=== PATIENT | male | born 1960 | race Caucasian/White ===

== ENCOUNTER 2025-01-31 14:48 | Emergency (ER) | payer MEDICARE, SELFPAY ==
--- OUTSIDE RECORDS SUMMARY | 2025-01-31 14:58 | XMS_ITS | Encounter Summary ---
Author Organization [facility] Address [address] [place] [address] Phone Care Team Providers Care Naval Aircrewman Operator Name Role Phone Yordan Feliz MD Primary Care Provider [phone] Ronit Rockwell MD Unavailable [phone] Randy Cruz MD Unavailable [phone] Jimena Davis MD Unavailable Liborio Downs MD Unavailable Manav Donohue MD Unavailable [phone] Kee Henao MD Primary Care Provider [phone] Delvis Campos MD Unavailable Leann Heath RN Unavailable Unavaila Heladio Velázquez DPM Unavailable Unavailable Richard Whiting MD Unavailable Mary Ann Figueredo ACTING MANAGER, AUDIO VISUAL TECHNICIAN Unavailable + [phone] Jami Zimmer ACTING MANAGER, AUDIO VISUAL TECHNICIAN Unavailable [phone] Carol Kyle ACTING MANAGER, MARINE ENGINEER CPVEC Unavailable + [phone] Aundrea Marvin ACTING MANAGER, AUDIO VISUAL TECHNICIAN Unavailable Reason for Visit * Reason Comments Medication Refill Encounter Details Date Type Department Care Team (Late st Contact Info) Description 10/06[facility] [address] [place] [address] Manav Donohue MD [address] [place] [id number] Medication Refill Social History Tobacco Use Types Packs/Day Years Used Date Smoking Tobacco: Every Day Cigarettes 0.5 45 Started: 07/13/1980; Last attempted to quit: 10/08/2019 Smokeless Tobacco: Never Alcohol Use Standard Drinks/Week Comments Yes 4 (1 standard drink = 0.6 oz pure alcohol) a lot a 1/2 of liquor per day PHQ-2 Answer Date Recorded Total Score - Questions 1-9 9 04/21 Sexually Active Control Partners Comments Not Currently Female Sex and Gender Information Value Date Recorded Sex Assigned at Male 01/25/2025 12:59 AM CDT Legal Sex Male 8:54 PM CDT Gender Identity Male 01/25/2025 12:59 AM CDT Sexual Orientation Not on file Occupation Industry Job Start Date Job End Date disabled Not on file Not on file Not on file COVID-19 Exposure Response Date Recorded In the last month, have you been in contact with someone who was confirmed or suspected to have Coronavirus / COVID-19? No / Unsure 09/08/2021 2:16 PM PLATE EMBOSSER documented as of this encounter Plan of Treatment Upcoming Encounters Date Type Department Care Team (Late Contact Info) Description 04/14/2025 3:30 PM CDT Office Visit [facility] - Internal Medicine [place] [address] [place] [id number] Kee Henao MD [address] [place] [address] documented as of this encounter Goals Goal Patient Goal Type Associated Problems Recent Progress Patient-Stated? 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 Goal Reviewed with: patient Readiness to change: Ready to change Department associated with goal: [facility] Steps to achieve goal: Patient to be counseled on coping skills for anxiety Patient to be counseled on importance of medication compliance, seeing a psychiatrist Patient to be counseled on breathing and relaxation techniques Behavioral Health Behavioral Health On track(2020 4:24 PM CDT) No Juan Oakley LCSW Note: Goal: Patient will be able to report decreased alcohol/substance usage, along with increased insight into addiction Goal Reviewed with: patient Readiness to change: Ready to change Department associated with goal: [facility] Steps to achieve goal: Patient counseled on triggers for relapse Patient counseled on healthy coping skills to help maintain sobriety Patient encouraged to attend or , linkage to Navigation for community resources Care Coordination Care Coordination On track(2020 2:12 PM CDT) Carlie Grijalva LSW Note: Patient will demonstrate knowledge of community resources (learn about [facility] homemaker services and Medicare Counselors at [facility]) Anticipated Completion Date: In the next 3 months Patient's Preferred Goal: Standard Challenges/Barriers: None Readiness to Change: Thinking about making a change Notify Care Team if: You do not have one of your basic needs met (food, half-way, utility). Short Term Goals: Community Care Program for Seniors in [place] can provide homemakers (in home care), emergency response buttons, and automatic medication dispensers. To apply for any of these services call [facility] Case Coordination Unit at [phone]. For information on choosing a new Medicare plan or about your Medicare benefits you can call [facility] and ask to speak with Hiram Walters at [phone] ext [phone] or call the the [place] [employer] Insurance Program at . Depression Depression On track(2020 2:12 PM CDT) No Carlie Ge LSW Note: Goal: I will access and utilize behavioral health services (connect with [facility]) Anticipated Completion Date: In the next 3 months Patient's Preferred Goal: Highest Priority Challenges/Barriers: Patient prefers telehealth visit does not like to leave his home Readiness to change: Thinking about making a change Notify Care Team if: You are having increased thoughts of suicide or self-harm, You are unable to locate Behavioral Health services in your area Short Term Goals: Patient to contact local Mental Health Crisis Team if in need of crisis services [phone] or (ph#) WILLIAM will place a referral to [facility] for them to call you to schedule a telehealth appointment. If you do not receive a call from them in the next week feel free to call them at [phone] to schedule an appointment. documented as of this encounter Visit Diagnoses Not on filedocumented in this encounter Additional Health Concerns Assessment Noted Time PHQ-9 Depression Total Score: 9 05/05/20 21 2:00 PM CDT documented as of this encounter Care Teams Naval Aircrewman Operator Relationship Specialty Start Date End Date Yordan Feliz MD [address] [place] [address] PCP - General Internal Medicine 09/08/17 11/30/21 Kee Henao MD [address] [place] [address] PCP - General Internal Medicine 12/01/21 Ronit Rockwell MD [address] [place] [address] Consulting Physician Psychiatry 09/08/17 Randy Cruz MD [address] [place] [address] Consulting Physician Hematology 03/21/18 Jimena Davis MD [address] [place] [address] Consulting Physician Urology 03/25/19 Liborio Downs MD [address] [place] [id number] Consulting Physician Pulmonary Disease 03/25/19 Manav Donohue MD [address] [place] [id number] Consulting Physician Neurology 07/14/21 Delvis Campos MD [address] [facility] [facility] [facility] [place] [address] Director Of Institutional Giving Cardiovascular Disease - Cardiology 01/07/22 07/24/24 Leann Brennan RN [place] Registered Nurse Cardiology 06/06/22 07/24/24 Heladio Blanco, DPM Podiatry 11/24/21 Richard Whiting MD [address] [place] [address] Consulting Physician Colon and Rectal Surgery 02/03/23 Mary Ann Figueredo APRN, AUDIO VISUAL TECHNICIAN #2 [facility] [address] [place] [id number] Nurse Practitioner Cardiology 09/04/23 Jami Zimmer APRN, AUDIO VISUAL TECHNICIAN [address]2 [facility] [address] [place] [address] Nurse Practitioner Advanced Practice Nurse 03/14/22 Carol Kyle APRN, MARINE ENGINEER CPV[facility] [address] [place] [address] Nurse Practitioner Advanced Practice Nurse 06/01/22 Aundrea Marvin APRN, AUDIO VISUAL TECHNICIAN [address] [place] [address] Nurse Practitioner Advanced Practice Nurse 09/16/24 documented as of this encounter
--- OUTSIDE RECORDS SUMMARY | 2025-01-31 14:58 | XMS_ITS | Encounter Summary ---
Author Organization [facility] Address [address] [place] [address] Phone Care Team Providers Care Aviation Program Manager Name Role Phone Ronit Rockwell MD Unavailable [phone] Randy Cruz MD Unavailable [phone] Jimena Davis MD Unavailable [phone] Liborio Downs MD Unavailable Manav Donohue MD Unavailable [phone] Kee Henao MD Primary Care Provider [phone] Delvis Campos MD Unavailable Leann Heath RN Unavailable Unavaila Heladio Velázquez DPM Unavailable Unavailable Richard Whiting MD Unavailable Mary Ann Figueredo LOGISTICS CLERK, OUTSIDE PLANT SUPERVISOR Unavailable + [phone] Jami Zimmer LOGISTICS CLERK, OUTSIDE PLANT SUPERVISOR Unavailable [phone] Carol Kyle LOGISTICS CLERK, NURSE INFORMATICIST Unavailable + [phone] Aundrea Marvin LOGISTICS CLERK, OUTSIDE PLANT SUPERVISOR Unavailable Reason for Visit * Reason Comments Medication Refill Encounter Details Date Type Department Care Team (Late st Contact Info) Description 06/19/2023 [facility]ill [facility] - [place] [address] [facility] [place] [address] Kee Henao MD [address] [place] [address] Medication Refill Social History Tobacco Use Types Packs/Day Years Used Date Smoking Tobacco: Every Day Cigarettes 0.5 45 Started: 07/13/1980; Last attempted to quit: 10/08/2019 Smokeless Tobacco: Never Alcohol Use Standard Drinks/Week Comments Yes 4 (1 standard drink = 0.6 oz pur e alcohol) stopped 01/16/22 PHQ-2 Answer Date Recorded Total Score - [...] Exposure Response Date Recorded In the last 10 days, have yo u been in contact with someone who was confirmed or suspected to have Coronavirus/COVID-19? No / Unsure 06/02/2023 3:19 PM CDT documented as of this encounter Miscellaneous Notes * Telephone Encounter - Calli Chisholm RN - 06/19/2023 1:09 PM CDT Per nursing clinical judgement, provider to review and approve the medication(s) order(s) if appropriate. Requested Prescriptions Pending Prescriptions Disp Refills dilTIAZem (CARDIZEM CD) 120 MG CAPSULE SR 24 HR [Pharmacy Med Name: DILTIAZEM CD 120MG CAPSULES (24HR)] 90 Capsule 1 Sig: TAKE 1 CAPSULE BY MOUTH DAILY Calcium-Channel Blockers Protocol Passed - 06/19/2023 5:48 AM Passed - BP on record in the past year Clinician-entered: BP Readings from Last 3 Encounters: 02/24/23 138/82 02/11/23 126/67 02/10/23 124/82 Patient-entered: No data recorded Passed - Visit with relevant provider in past 12 months or upcoming 90 days Recent Visits Date Type Provider Dept 09/23/22 [facility] 06/29/22 Office Visit Kee Henao MD [facility] [place] Showing recent visits within past 365 days and meeting all other requirements Future Appointments No visits were found meeting these conditions. Showing future appointments within next 90 days and meeting all other requirements documented in this encounter Plan of Treatment Upcoming Encounters Date Type Department Care Team (Late st Contact Info) Description 04/14/2025 3:30 PM CDT Office Visit [facility] - Internal Medicine - [place] [address] [place] [address] Kee Henao MD [address] [place] [address] documented as of this encounter Goals Goal Patient Goal Type Associated Problems Recent Progress Patient-Stated? 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 Goal Reviewed with: patient Readiness to change: Ready to change Department associated with goal: [facility] Steps to achieve [...] Ready to change Department associated with goal: [facility] Steps to achieve goal: Patient counseled on triggers for relapse Patient counseled on healthy coping skills to help maintain sobriety Patient encouraged to attend AA or NA, linkage to Navigation for community resources Care Coordination Care Coordination On track(2020 2:12 PM CDT) Carlie Grijalva LSW Note: Patient will demonstrate knowledge of community resources (learn about [facility] homemaker services and Medicare Counselors at [facility]) Anticipated Completion Date: In the next 3 months Patient's Preferred Goal: Standard Challenges/Barriers: None Readiness to Change: Thinking about making a change Notify Care Team if: You do not have one of your basic needs met (food, fpc, utility). Short Term Goals: Community Care Program for Seniors in [place] can provide homemakers (in home care), emergency response buttons, and automatic medication dispensers. To apply for any of these services call [facility] Case Coordination Unit at [phone]. For information on choosing a new Medicare plan or about your Medicare benefits you can call [facility] and ask to speak with Hiram Walters at [phone] ext [phone] or call the the [place] [employer] [facility] Insurance Program at . Depression Depression On track(2020 2:12 PM CDT) Carlie Grijalva LSW Note: Goal: I will access and [...] Team if in need of crisis services [phone] or (ph#) WILLIAM GREY will place a referral to [facility] for them to call you to schedule a telehealth appointment. If you do not receive a call from them in the next week feel free to call them at [phone] to schedule an appointment. documented as of this encounter Visit Diagnoses Not on filedocumented in this encounter Additional Health Concerns Assessment Noted Time PHQ-9 Depression Total Score: 9 05/05/20 21 2:00 PM CDT documented as of this encounter Care Teams Aviation Program Manager Relationship Specialty Start Date End Date Kee Henao MD [address] [place] [address] PCP - General Internal Medicine 12/01/21 Ronit Rockwell MD Consulting Physician Psychiatry 09/08/17 Randy Cruz MD [address] [place], [place] [id number] Consulting Physician Hematology 03/21/18 Jimena Davis MD [address] [place] [address] Consulting Physician Urology 03/25/19 Liborio Downs MD [address] [place] [address] Consulting Physician Pulmonary Disease 03/25/19 Manav Donohue MD [address] [place] [address] Consulting Physician Neurology 07/14/21 Delvis Campos MD [address] [place] [address] Consumer Insights Intern Cardiovascular Disease - Cardiology 01/07/22 07/24/24 Leann Brennan, [place] Registered Nurse Cardiology 06/06/22 07/24/24 Heladio Blanco, DPM Podiatry 11/24/21 Richard Whiting MD #[address] [facility] [address] [place] [address] Consulting Physician Colon and Rectal Surgery 02/03/23 Mary Ann Figueredo, LOGISTICS CLERK, OUTSIDE PLANT SUPERVISOR #2 [facility] [address] [place] [address] Nurse Practitioner Cardiology 09/04/23 Jami Zimmer, LOGISTICS CLERK, OUTSIDE PLANT SUPERVISOR #[address] [facility] [address] [place] [address] Nurse Practitioner Advanced Practice Nurse 03/14/22 Carol Kyle, LOGISTICS CLERK, NURSE INFORMATICIST [address] [place] [address] Nurse Practitioner Advanced Practice Nurse 06/01/22 Aundrea Marvin APRN, OUTSIDE PLANT SUPERVISOR [address] [place] [address] Nurse Practitioner Advanced Practice Nurse 09/16/24 documented as of this encounter
--- OUTSIDE RECORDS SUMMARY | 2025-01-31 14:58 | XMS_ITS | Encounter Summary ---
Author Organization [facility] Address [address] [place] [address] Phone Care Team Providers Care Advertising Sales Manager Name Role Phone Yordan Feliz MD Primary Care Provider [phone] Ronit Rockwell MD Unavailable [phone] Randy Cruz MD Unavailable [phone] Jimena Davis MD Unavailable Liborio Downs MD Unavailable Manav Donohue MD Unavailable [phone] Kee Henao MD Primary Care Provider [phone] Delvis Campos MD Unavailable Leann Heath RN Unavailable Unavaila Heladio Velázquez DPM Unavailable Unavailable Richard Whiting MD Unavailable Mary Ann Figueredo HEALTH POLICY ANALYST, CHEESE PACKER Unavailable + [phone] Jami Zimmer HEALTH POLICY ANALYST, CHEESE PACKER Unavailable [phone] Carol Kyle HEALTH POLICY ANALYST, SENIOR ORACLE DATABASE DEVELOPER Unavailable + [phone] Aundrea Marvin HEALTH POLICY ANALYST, CHEESE PACKER Unavailable Reason for Visit * Reason Comments Medication Refill Encounter Details Date Type Department Care Team (Late st Contact Info) Description [facility]/21/[facility] [address] [place] [address] Manav Donohue MD [address] [place] [address] Medication Refill Social History Tobacco Use Types [...] file Not on file Not on file documented as of this encounter Plan of Treatment Upcoming Encounters Date Type Department Care Team (Late Contact Info) Description 04/14/2025 3:30 PM CDT Office Visit [facility] Internal Medicine [facility] [address] [place] [address] eKe Henao MD [address] [facility] [place] [address] documented as of this encounter Goals Goal Patient Goal Type Associated Problems Recent Progress Patient-Stated? 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 Goal Reviewed with: patient Readiness to change: Ready to change Department associated with goal: [facility] Steps to achieve goal: [...] Ready to change Department associated with goal: [facility] Steps to achieve goal: Patient counseled on triggers for relapse Patient counseled on healthy coping skills to help maintain sobriety Patient encouraged to attend AA or NA, linkage to Navigation for community resources Care Coordination Care Coordination On track(2020 2:12 PM CDT) Carlie Grijalva LSW Note: Patient will demonstrate knowledge of community resources (learn about [facility] homemaker services and Medicare Counselors at [facility]) Anticipated Completion Date: In the next 3 months Patient's Preferred Goal: Standard Challenges/Barriers: None Readiness to Change: Thinking about making a change Notify Care Team if: You do not have one of your basic needs met (food, snf, utility). Short Term Goals: Community Care Program for Seniors in [place] can provide homemakers (in home care), emergency response buttons, and automatic medication dispensers. To apply for any of these services call [place] Case Coordination Unit at [phone]. For information on choosing a new Medicare plan or about your Medicare benefits you can call [facility] [address] [facility] and ask to speak with Hiram Walters at [phone] ext [phone] or call the the [place] [employer] Insurance Program at . Depression Depression On track(2020 2:12 PM CDT) Carlie Grijalva LSW Note: Goal: I will access and utilize behavioral health services ([facility] with [facility]) Anticipated Completion Date: In the [...] Team if in need of crisis services [phone] or (ph#) WILLIAM GREY will place a referral to [facility] for them to call you to schedule a telehealth appointment. If you do not receive a call from them in the next week feel free to call them at [phone] to schedule an appointment. documented as of this encounter Visit Diagnoses Diagnosis RLS (restless legs syndrome) Restless legs syndrome (RLS) documented in this encounter Additional Health Concerns Assessment Noted Time PHQ-9 Depression Total Score: 9 05/05/20 21 2:00 PM CDT documented as of this encounter Care Teams Advertising Sales Manager Relationship Specialty Start Date End Date Yordan Feliz MD [address] [place] [address] PCP - General Internal Medicine 09/08/17 11/30/21 Kee Henao MD [address] [place] [address] PCP - General Internal Medicine 12/01/21 Ronit Rockwell MD [address] [place] [address] Consulting Physician Psychiatry 09/08/17 Randy Cruz MD [address] [place] [address] Consulting Physician Hematology 03/21/18 Jimena Davis MD [address] [place] [address] Consulting Physician Urology 03/25/19 Liborio Downs MD [address] [place] [address] Consulting Physician Pulmonary Disease 03/25/19 Manav Donohue MD [address] [place] [address] Consulting Physician Neurology 07/14/21 Delvis Campos MD [address] [place] [address] Bilingual Counter Sales Retail Cardiovascular Disease - Cardiology 01/07/22 07/24/24 Leann Brennan RN [place] Registered Nurse Cardiology 06/06/22 07/24/24 Heladio Blanco DPM Podiatry 11/24/21 Richard Whiting MD #[address] [address] Consulting Physician Colon and Rectal Surgery 02/03/23 Mary Ann Figueredo APRN, CHEESE PACKER #2 [facility] [address] [place] [address] Nurse Practitioner Cardiology 09/04/23 Jami Zimmer APRN, CHEESE PACKER #2 [facility] [address] [place] [address] Nurse Practitioner Advanced Practice Nurse 03/14/22 Carol Kyle APRN, SENIOR ORACLE DATABASE DEVELOPER #[address] [place] [address] Nurse Practitioner Advanced Practice Nurse 06/01/22 Aundrea Marvin APRN, CHEESE PACKER #[address] [place] [address] Nurse Practitioner Advanced Practice Nurse 09/16/24 documented as of this encounter
--- OUTSIDE RECORDS SUMMARY | 2025-01-31 14:58 | XMS_ITS | Encounter Summary ---
Author Organization [facility] Address [address] [place] [address] Phone Care Team Providers Care Line Inspector Name Role Phone Yordan Feliz MD Primary Care Provider [phone] Ronit Rockwell MD Unavailable [phone] Randy Cruz MD Unavailable [phone] Jimena Davis MD Unavailable [phone] Liborio Downs MD Unavailable Manav Donohue MD Unavailable [phone] Kee Henao MD Primary Care Provider [phone] Delvis Campos MD Unavailable Leann Heath RN Unavailable Unavaila Heladio Velázquez DPM Unavailable Unavailable Richard Whiting MD Unavailable Mary Ann Figueredo AMMUNITION STORAGE SUPERINTENDENT, MANAGER ACTUARIAL Unavailable + [phone] Jami Zimmer AMMUNITION STORAGE SUPERINTENDENT, MANAGER ACTUARIAL Unavailable [phone] Carol Kyle AMMUNITION STORAGE SUPERINTENDENT, AUTOMAT CAR ATTENDANT Unavailable + [phone] Aundrea Marvin AMMUNITION STORAGE SUPERINTENDENT, MANAGER ACTUARIAL Unavailable Reason for Visit * Reason Comments Medication Refill Encounter Details Date Type Department Care Team (Late st Contact Info) Description 08/30/2021 [facility] [address] [place] [address] Manav Donohue MD [address] [place] [address] Medication Refill Social History Tobacco Use Types [...] Description 04/14/2025 3:30 PM CDT Office Visit [facility] Internal Medicine [facility] [address] [place] [address] Kee Henao MD [address] [facility] [place] [address] documented as of this encounter Goals Goal Patient Goal Type Associated Problems Recent Progress Patient-Stated? 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 Goal Reviewed with: patient Readiness to change: Ready to change Department associated with goal: [facility] Steps to achieve goal: [...] to change Department associated with goal: [facility] Steps to achieve goal: Patient counseled on triggers for relapse Patient counseled on healthy coping skills to help maintain sobriety Patient encouraged to attend AA or NA, linkage to Navigation for community resources Care Coordination Care Coordination On track(2020 2:12 PM CDT) Carlie Grijalva LSW Note: Patient will demonstrate knowledge of community resources (learn about [facility] homemaker services and Medicare Counselors at [facility]) Anticipated Completion Date: In the next 3 months Patient's Preferred Goal: Standard Challenges/Barriers: None Readiness to Change: Thinking about making a change Notify Care Team if: You do not have one of your basic needs met (food, penitentiary, utility). Short Term Goals: Community Care Program for [place]iors in [place] can provide homemakers (in home care), emergency response buttons, and automatic medication dispensers. To apply for any of these services call [facility] at [phone]. For information on choosing a new Medicare plan or about your Medicare benefits you can call [facility] and ask to speak with Hiram Walters at [phone] or call the the [place] [employer] [facility] [place] Program at . Depression Depression [...] Team if in need of crisis services [phone] or (ph#) WILLIAM GREY will place a referral to [facility] for them to call you to schedule a telehealth appointment. If you do not receive a call from them in the next week feel free to call them at [phone] to schedule an appointment. documented as of this encounter Visit Diagnoses Not on filedocumented in this encounter Additional Health Concerns Infection Onset Date Last Indicated Resolved Time COVID - 19 09/08/2021 09/09/2021 09/29/2021 12:1 6 AM GENERATION ENGINEER Assessment Noted Time PHQ-9 Depression Total Score: 9 05/05/20 21 2:00 PM CDT documented as of this encounter Care Teams Line Inspector Relationship Specialty Start Date End Date Yordan Feliz MD [address] [place] [address] PCP - General Internal Medicine 09/08/17 11/30/21 Kee Henao MD [address] [place] [address] PCP - General Internal Medicine 12/01/21 Ronit Rockwell MD [address] [place] [address] Consulting Physician Psychiatry 09/08/17 Randy Cruz MD [address] [place] [address] Consulting Physician Hematology 03/21/18 Jimena Davis MD [address] [id number] Consulting Physician Urology 03/25/19 Liborio Downs MD [address] [place] [phone] Consulting Physician Pulmonary Disease 03/25/19 Manav Donohue MD [address] [place] [phone] Consulting Physician Neurology 07/14/21 Delvis Campos MD [address] [place] [address] Dress Draper Cardiovascular Disease - Cardiology 01/07/22 07/24/24 Leann Brennan RN [place] Registered Nurse Cardiology 06/06/22 07/24/24 Heladio Blanco, DPM Podiatry 11/24/21 Richard Whiting MD [address] [place] [address] Consulting Physician Colon and Rectal Surgery 02/03/23 Mary Ann Figueredo, AMMUNITION STORAGE SUPERINTENDENT, MANAGER ACTUARIAL [address] [facility] [address] [place] [address] Nurse Practitioner Cardiology 09/04/23 Jami Zimmer, AMMUNITION STORAGE SUPERINTENDENT, MANAGER ACTUARIAL [address]2 [facility] [address] [place] [address] Nurse Practitioner Advanced Practice Nurse 03/14/22 Carol Kyle, AMMUNITION STORAGE SUPERINTENDENT, AUTOMAT CAR ATTENDANT [address] [place] [address] Nurse Practitioner Advanced Practice Nurse 06/01/22 Aundrea Marvin APRN, MANAGER ACTUARIAL [address] [place] [address] Nurse Practitioner Advanced Practice Nurse 09/16/24 documented as of this encounter
--- OUTSIDE RECORDS SUMMARY | 2025-01-31 14:58 | XMS_ITS | Encounter Summary ---
Author Organization [facility] Address [address] [place] [address] Phone Care Team Providers Care Plugger Name Role Phone Ronit Rockwell MD Unavailable [phone] Randy Cruz MD Unavailable [phone] Jimena Davis MD Unavailable [phone] Liborio Downs MD Unavailable Manav Donohue MD Unavailable [phone] Kee Henao MD Primary Care Provider [phone] Delvis Campos MD Unavailable Leann Heath RN Unavailable Unavaila Heladio Velázquez DPM Unavailable Unavailable Richard Whiting MD Unavailable Mary Ann Figueredo UTILITY SUPERVISOR BOAT AND PLANT, PATCH WASHER Unavailable + [phone] Jami Zimmer UTILITY SUPERVISOR BOAT AND PLANT, PATCH WASHER Unavailable [phone] Carol Kyle UTILITY SUPERVISOR BOAT AND PLANT, SECURITY SUPPORT ANALYST Unavailable + [phone] Aundrea Marvin UTILITY SUPERVISOR BOAT AND PLANT, PATCH WASHER Unavailable Reason for Visit * Reason Comments Medication Refill Encounter Details Date Type Department Care Team (Late st Contact Info) Description 08/06/2023 Refill [facility] - Internal Medicine - [place] [address] [place] [address] Kathya Brink, ANNALISE [address] [place] [address] Medication Refill Social History Tobacco Use Types [...] on file documented as of this encounter Miscellaneous Notes * Telephone Encounter - Calli Chisholm RN - 08/07/2023 8:41 AM CST Medication failed the protocol, provider to review and approve the medication order if appropriate. Requested Prescriptions Pending Prescriptions Disp Refills gabapentin (NEURONTIN) 800 MG Tablet [Pharmacy Med Name: GABAPENTIN 800MG TABLETS] 90 Tablet 3 Sig: TAKE 1 TABLET BY MOUTH THREE TIMES DAILY Not Delegated - Anticonvulsants Excluding Benzodiazepines Protocol Failed - 08/06/2023 5:55 AM Failed - This refill cannot be delegated Passed - Visit with relevant provider in past 12 months or upcoming 90 days Recent Visits Date Type Provider Dept 09/23/22 Office Visit Kathya Brink, ANNALISE [facility] [place] Showing recent visits within past 365 days and meeting all other requirements Future Appointments No visits were found meeting these conditions. Showing future appointments within next 90 days and meeting all other requirements CHEMIST documented in this encounter Plan of Treatment Upcoming Encounters Date Type Department Care Team (Late st Contact Info) Description 04/14/2025 3:30 PM CDT Office Visit [facility] - Internal Medicine - [place] [address] [place] [address] Kee Henao MD [address] [place] [address] documented as of this encounter Goals Goal Patient Goal Type Associated Problems Recent Progress Patient-Stated? 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 Goal Reviewed with: patient Readiness to change: Ready to change Department associated with goal: [facility] Steps to achieve goal: [...] Ready to change Department associated with goal: [facility] Steps to achieve goal: Patient counseled on triggers for relapse Patient counseled on healthy coping skills to help maintain sobriety Patient encouraged to attend AA or NA, linkage to Navigation for community resources Care Coordination Care Coordination On track(2020 2:12 PM CDT) No Carlie Ge LSW Note: Patient will demonstrate knowledge of community resources (learn about [facility] homemaker services and Medicare Counselors at [facility]) Anticipated Completion Date: In the next 3 months Patient's Preferred Goal: Standard Challenges/Barriers: None Readiness to Change: Thinking about making a change Notify Care Team if: You do not have one of your basic needs met (food, custodial, utility). Short Term Goals: Community Care Program for Seniors in [place] can provide homemakers (in home care), emergency response buttons, and automatic medication dispensers. To apply for any of these services call [facility] at [phone]. For information on choosing a new Medicare plan or about your Medicare benefits you can call [employer] and ask to speak with Hiram Walters at [phone] or call the the [place] Health Insurance Program at . Depression Depression On track(2020 2:12 PM CDT) No Carlie Ge, MARILU Note: Goal: I will access and utilize [...] Team if in need of crisis services [phone] or (ph#) WILLIAM GREY will place a referral to [facility] for them to call you to schedule a telehealth appointment. If you do not receive a call from them in the next week feel free to call them at [phone] to schedule an appointment. documented as of this encounter Visit Diagnoses Diagnosis RLS (restless legs syndrome) Restless legs syndrome (RLS) documented in this encounter Additional Health Concerns Assessment Noted Time PHQ-9 Depression Total Score: 9 05/05/20 21 2:00 PM CDT documented as of this encounter Care Teams Plugger Relationship Specialty Start Date End Date Kee Henao MD [address] [place] [address] PCP - General Internal Medicine 12/01/21 Ronit Rockwell MD Consulting Physician Psychiatry 09/08/17 Randy Cruz MD [address] [id number] Consulting Physician Hematology 03/21/18 Jimena Davis MD [address] [id number] Consulting Physician Urology 03/25/19 Liborio Downs MD [address] [place] [address] Consulting Physician Pulmonary Disease 03/25/19 Manav Donohue MD [address] [place] [address] Consulting Physician Neurology 07/14/21 Delvis Campos MD [address] [facility] [place] [address] Detective Investigator Cardiovascular Disease - Cardiology 01/07/22 07/24/24 Leann Brennan, MELISSA [place] Registered Nurse Cardiology 06/06/22 07/24/24 Heladio Blanco, DPM Podiatry 11/24/21 Richard Whiting MD [address] [address] Consulting Physician Colon and Rectal Surgery 02/03/23 Mary Ann Figueredo APRN, PATCH WASHER [address] [address] Nurse Practitioner Cardiology 09/04/23 Jami Zimmer APRN, PATCH WASHER [address] [address] Nurse Practitioner Advanced Practice Nurse 03/14/22 Carol Kyle UTILITY SUPERVISOR BOAT AND PLANT, SECURITY SUPPORT ANALYST [address] [place] [address] Nurse Practitioner Advanced Practice Nurse 06/01/22 Aundrea Marvin APRN, PATCH WASHER [address] [place] [address] Nurse Practitioner Advanced Practice Nurse 09/16/24 documented as of this encounter
--- OUTSIDE RECORDS SUMMARY | 2025-01-31 14:58 | XMS_ITS | Clinical Summary ---
Author Organization [facility] Address [address] [place] [address] Phone Care Team Providers Care Metal Technician Name Role Phone RockwellRonit MD Unavailable Randy Cruz MD Unavailable [phone] Jimena Davis MD Unavailable [phone] Liborio Downs MD Unavailable Manav Donohue MD Unavailable [phone] Kee Henao MD Primary Care Provider [phone] Heladio Blanco DPM Unavailable Unavailable Richard Whiting MD Unavailable Mary Ann Figueredo BRIQUETTING MACHINE OPERATOR, FISHERIES DIRECTOR Unavailable + [phone] Jami Zimmer BRIQUETTING MACHINE OPERATOR, FISHERIES DIRECTOR Unavailable Carol Kyle BRIQUETTING MACHINE OPERATOR, ASSISTED LIVING EXECUTIVE DIRECTOR Unavailable + [phone] Aundrea Marvin BRIQUETTING MACHINE OPERATOR, FISHERIES DIRECTOR Unavailable Allergies Active Allergy Reactions Criticality Noted Date Comments Codeine Nausea 09/23/2022 Medications Multiple Vitamins-Minera ls (MULTIVITAL PO) Take 1 Tab by mouth daily. 8 Active MAGNESIUM PO Take 1 Tablet by mouth every other day. Active QUEtiapine (SEROquel) 100 MG TabletIndicatio ns:patient states he take 50 mg nigthly prn Take 1 Tablet by mouth nightly. Indications: patient states he take 50 mg nigthly prn 30 Tablet 1 1 Active clonazePAM (KlonoPIN) 0.5 MG Tablet Take 1 mg by mouth daily as needed for Anxiety. 2 Active Probiotic Product (PROBIOTIC-10 PO) Take by mouth daily. Active albuterol (ProAir HFA) 108 (90 Base) MCG/ACT Aerosol Solution take 2 Puffs by inhalation every 4 hours as needed for Wheezing. 1 g 5 3 Active buprenorphine-n aloxone (Suboxone) 1-0.25 FILM by Sublingual route 2 times daily. DOES NOT HAVE A LEGAL DOSE, TAKES MICRO DOSE BY CUTTING UP STRIP - .5mg BID Active metoprolol Succinate (TOPROL-XL) 50 MG TABLET SR 24 HR TAKE 1 TABLET BY MOUTH DAILY 180 Tablet 1 4 Active Vilazodone HCl 10 MG Tablet Take 1 Tablet by mouth every evening. 4 Active cloNIDine (CATAPRES) 0.1 MG Tablet Take 1 Tablet by mouth 2 times daily. 180 Tablet 1 4 Active gabapentin (NEURONTIN) 600 MG Tablet Take 1 Tablet by mouth 3 times daily. 90 Tablet 3 4 Active pantoprazole (PROTONIX) 20 MG Tablet Delayed Response Take 1 Tablet by mouth daily. 30 Tablet 3 4 Active rOPINIRole (REQUIP) 2 MG Tablet Take 1 tablet by mouth three times a day 270 Tablet 5 Active dilTIAZem (CARDIZEM CD) 240 MG CAPSULE SR 24 HR Take 1 Capsule by mouth daily. 90 Capsule 3 5 Active Xarelto 20 MG Tablet TAKE 1 TABLET BY MOUTH DAILY WITH FOOD 30 Tablet 5 5 Active ondansetron (ZOFRAN) 8 MG Tablet TAKE 1 TABLET BY MOUTH EVERY 8 HOURS NEEDED FOR NAUSEA 30 Tablet 5 Active cephALEXin (KEFLEX) 500 MG Capsule Take 1 Capsule by mouth 2 times daily for 7 days. 14 Capsule 5 02/02/20 25 Active tamsulosin (FLOMAX) 0.4 MG Capsule Take 1 Capsule by mouth daily. 30 Capsule 5 Active Active Problems Problem Noted Date Diagnosed Date Centrilobular emphysema 06/29/2022 Edema 02/02/2022 Paroxysmal atrial fibrillation 12/03/2021 Alcohol abuse 05/05/2021 Schizoaffective disorder, bipolar type 1 Insomnia secondary to chronic pain 01/29/2020 Cervicalgia 01/29/2020 [facility] current use of anticoagulant 0 Uncomplicated alcohol dependence 06/28/2019 Adrenal benign tumor, right 06/26/2019 Adrenal incidentaloma 05/23/2019 Class 1 obesity due to exces s calories with serious comorbidity and body mass index (BMI) of 31.0 to 31.9 in adult 05/23/2019 CED (obstructive sleep apnea) 09/10/2018 RLS (restless legs syndrome) 09/10/2018 Personal history of tobacco use 09/10/2018 Recurrent deep venous thrombosis 09/26/2017 Generalized anxiety disorder 02/29/2016 Shoulder pain, right 07/13/2015 GERD without esophagitis 07/13/2015 Attention deficit disorder 10/31/2012 Irritable colon 08/22/2012 Bipolar 1 disorder Chronic back pain Other hyperlipidemia Resolved Problems Problem Noted Date Diagnosed Date Resolved Date Atrial fibrillation with RVR 09/08/2021 09/10/2021 Seizure 05/18/2020 12/03/2021 Atrial fibrillation with RVR 06/26/2019 12/03/2021 Anxiety 04/11/2019 01/01/2020 Bilateral pulmonary embolism 04/10/2019 10/07/2019 Left leg DVT 04/10/2019 10/07/2019 Hypertriglyceridemia 04/10/2019 020 Joint pain 02/01/2018 03/21/2018 History of DVT of lower extremity 11/22/2017 03/21/2018 History of pulmonary embolism 09/26/2017 03/21/2018 Non-intractable vomiting without nausea 12/20/2016 03/21/2018 Venous thrombosis of deep ve ssels of the lower extremity 03/21/2018 Overview (07/14/2015): right leg DVT ,unprovoked, diagnosed in June 2014. CT chest showed probable small subsegmental PE in left lower lobe -- On anticoagulation since Jun 2014 -- Hypercoagulable work-up negative Encounters Date Type Department Care Team Description 01/29/2025 Telephone [facility] Call Center [address] [place] [address] Kee Henao MD Erroneous Encounter - Disregard 01/28/2025 Results Follow-Up [facility] [address] [place] [address] Liborio Downs MD XR CHEST 2 VIEWS 01/25/2025 12:43 AM CDT - 01/25/2025 4:39 AM CDT Emergency [facility] Emergency [address] [place] [address] Wellington Zelaya MD Acute cystitis without hematuria Discharge Disposition: Discharged to home or Selfcare 01/25/2025 Travel 01/20/2025 2:30 PM CDT - 01/20/2025 11:59 PM CDT Hospital Encounter [facility] Diagnostic Radiology [address] [place] [address] Liborio Downs MD Discharge Disposition: Discharged to home or Selfcare 01/20/2025 Travel 12/09/2024 2:30 PM CDT Office Visit [facility] [address] [place] [address] Liborio Downs MD Centrilobular emphysema (HCC) (Primary Dx); RLS (restless legs syndrome); Paroxysmal atrial fibrillation (HCC); Alcohol abuse Discharge Disposition: Discharged to home or Selfcare 12/09/2024 Travel 11/14/2024 Results Follow-Up [facility] - [place] [address] [place] [id number] Kee Henao MD HEMOGLOBIN A1C W/ ESTIMATED GLUCOSE, CMP (COMPREHENSIVE METABOLIC PANEL), LIPID PANEL, Additional followed-up results: 3 11/13/2024 Travel 11/12/2024 Telephone [facility] - Pulmonology & Sleep Medicine - [place] [address] [place] [address] Liborio Downs MD 11/05/2024 Refill [facility] - [place] [address] [place] [address] Kee Henao MD Medication Refill from Last 3 Months Immunizations Immunization Administration Dates Next Due Influenza Vaccine greater than 3 yrs 06/01/2015 Influenza Vaccine, Quadrivalent, PF 04/21,04/27/2022,06/22/2020,05/27,09/24/2018,09/08/2017,05/30/2014 Influenza, Trivalent, Adjuvanted, PF 08/19/2024 PUR FLU 3+ YRS PRES FREE QUAD IM 06/17/2016 PUR PCV-13 06/17/2016 Pneumococcal Vaccine Adult - 23 Valent ,09/08/2017 Pneumococcal conjugate PCV20 , polysaccharide [id number] conjugate, adjuvant, PF 05/20/2022 RSV, Recombinant, Protein Lobo bunit Rsvpref, Adjuvant Recon (Arexvy) 05/03/2023 Sars-cov-2 (Covid-19) Vaccin e, Unspecified 07/21/2023 Zoster Vaccine Recombinant 05/20/2022 Family History Medical History Relation Name Comments Diabetes Brother mariam Kidney Stones Brother mariam Cancer Father mesothelioma Other-comment Father MESOTHELIOMA No Known Problems Half-Brother estela Thyroid Disease Mother Cancer Paternal Uncle Prostate Cancer Paternal Uncle Rashes/Skin Problems Neg Hx Relation Name Status Comments Brother mariam Alive Father Half-Brother estela Alive Maternal Grandfather Maternal Grandmother Mother Unknown Paternal Grandfather Paternal Grandmother Paternal Uncle Social History Tobacco Use Types Packs/Day Years Used Date Smoking Tobacco: Every Day Cigarettes 0.5 44.6 Started: 07/13/1980 Smokeless Tobacco: Former Chew Tobacco Cessation:Ready to Q uit: No; Counseling Given: Yes Alcohol Use Standard Drinks/Week Comments Yes 35 (1 standard drink = 0.6 oz pu re alcohol) PHQ-2 Answer Date Recorded Total Score - [...] file Not on file Not on file Last Filed Vital Signs Vital Sign Reading Time Taken Comments Blood Pressure 129/80 01/25/2025 4:30 AM CDT Pulse 108 01/25/2025 4:30 AM CDT Temperature 36 C (96.8 F) 01/25/2025 12:39 AM CDT Respiratory Rate 17 01/25/2025 4:30 AM CDT Oxygen Saturation 90% 01/25/2025 4:30 AM CDT Inhaled Oxygen Concentration - - Weight 117.9 kg (260 lb) 01/25/2025 12:39 AM CDT Height 182.9 cm (6') 01/25/2025 12:39 AM CDT Body Mass Index 35.26 01/25/2025 12:39 AM CDT Plan of Treatment Upcoming Encounters Date Type Department Care Team (Late st Contact Info) Description 04/14/2025 3:30 PM CDT Office Visit [facility] - [facility] - [place] [address] [place] [id number] Kee Henao MD [address] [place] [address] Health Maintenance Due Date Last Done Comments TdaP Immunization 1958 Cologuard 2003 Immunochemical Fecal Occult Blood 2003 Zoster Immunization (2 of 2) 07/15/2022 05/20/2022 Lung Cancer Screening 03/18/2025 03/18/2024 , 09/06/2023, 06/02/2023, Additional history exists SARS-COV-2 Immunization ( season) 2025 11/06/2024, 07/21/2023, 05/20/2022, Additional history exists Colonoscopy 02/01/2027 02/01/2017, 12/2013, 11/10/2009 Colorectal Cancer Screening 02/01/2027 AAA Screening Ultrasound Completed 03/11/2022 Respiratory Syncytial Virus (RSV) Immunization (Adult) Completed 05/03/2023 Influenza Immunization Completed , 08/19/2024, 05/03/2023, Additional history exists Pneumococcal Immunization (50+ years) Completed 11/06/2024, 05/20/2022, 06/22/2020, Additional history exists Pneumococcal Immunization Combined Discontinued 11/06/2024, 05/20/2022, 06/22/2020, Additional history exists Hepatitis C Virus (HCV) Screening Completed 11/13/2024 PSA Discussion Completed 11/13/2024, 12/05/2018 Hepatitis B Immunization Aged Out No longer eligible based on patient's age to complete this topic Human Papillomavirus (HPV) Immunization Aged Out No longer eligible based on patient's age to complete this topic Meningococcal Immunization (ACWY) Aged Out No longer eligible based on patient's age to complete this topic Rotavirus Immunization Aged Out No lo nger eligible based on patient's age to complete this topic Goals Goal Patient Goal Type Associated Problems Recent Progress Patient-Stated? 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 Goal Reviewed with: patient Readiness to change: Ready to change Department associated with goal: [facility] Steps to achieve [...] Ready to change Department associated with goal: [facility] Steps to achieve goal: Patient counseled on triggers for relapse Patient counseled on healthy coping skills to help maintain sobriety Patient encouraged to attend AA or NA, linkage to Navigation for community resources Care Coordination Care Coordination On track(2020 2:12 PM CDT) Carlie Grijalva LSW Note: Patient will demonstrate knowledge of community resources (learn about [facility] homemaker services and Medicare Counselors at [facility]) Anticipated Completion Date: In the next 3 months Patient's Preferred Goal: Standard Challenges/Barriers: None Readiness to Change: Thinking about making a change Notify Care Team if: You do not have one of your basic needs met (food, assisted, utility). Short Term Goals: [facility] for Seniors in [place] can provide homemakers (in home care), emergency response buttons, and automatic medication dispensers. To apply for any of these services call [facility] at [phone]. For information on choosing a new Medicare plan or about your Medicare benefits you can call [facility] and ask to speak with Hiram Walters at [phone] ext [phone] or call the the [place] [employer] Health Insurance Program at . Depression Depression [...] Team if in need of crisis services [phone] or (ph#) WILLIAM GREY will place a referral to [facility] for them to call you to schedule a telehealth appointment. If you do not receive a call from them in the next week feel free to call them at [phone] to schedule an appointment. Procedures Procedure Name Priority Date/Time Associated Diagnosis Comments URINALYSIS REFLEX IF INDICATED BY ABNORMAL RESULTS STAT 01/25/2025 3:00 AM CDT CULTURE, URINE STAT 01/25/2025 3:00 AM CDT XR CHEST SINGLE VIEW PORTABLE STAT 01/25/2025 2:[address] ABDOMEN PELVIS W/O CONTRAST Stat with Interpretation 01/25/2025 2:08 AM CDT CBC WITH AUTO DIFFERENTIAL STAT 01/25/2025 1:54 AM CDT ETHYL ALCOHOL (ETHANOL) STAT 01/25/2025 1:54 AM CDT MAGNESIUM (MG) STAT 01/25/2025 1:54 AM CDT TROPONIN I, HIGH SENSITIVITY (HSTRP) STAT 01/25/2025 1:54 AM CDT CMP (COMPREHENSIVE METABOLIC PANEL) STAT 01/25/2025 1:54 AM CDT COMPLETE BLOOD COUNT (CBC) WITH DIFF STAT 01/25/2025 1:54 AM CDT EKG 12 LEAD STAT 01/25/2025 1:37 AM CDT EKG SCAN 01/25/2025 12:00 AM CDT XR CHEST 2 VIEWS Routine 01/20/2025 2:42 PM CDT Centrilobular emphysema (HCC) CBC WITH AUTO DIFFERENTIAL Routine 11/13/2024 2:49 PM CDT Chronic fatigue HEPATITIS C ANTIBODY Routine 11/13/2024 2:49 PM CDT Abnormal findings on diagnostic imaging of liver HEPATITIS B SURFACE ANTIGEN (HBSAG) Routine 11/13/2024 2:49 PM CDT Abnormal findings on diagnostic imaging of liver Encounter for screening for other viral diseases HEPATITIS B SURFACE ANTIBODY (HBSAB) Routine 11/13/2024 2:49 PM CDT Abnormal findings on diagnostic imaging of liver Encounter for screening for other viral diseases HEPATITIS A ANTIBODY IGG Routine 11/13/2024 2:49 PM CDT Abnormal findings on diagnostic imaging of liver FIBROTEST ACTITEST, SERUM, LEWIS FIBRO Routine 11/13/2024 2:49 PM CDT Fatty liver Abnormal findings on diagnostic imaging of liver PSA SCREEN Routine 11/13/2024 2:49 PM CDT Screening for prostate cancer COMPLETE BLOOD COUNT (CBC) WITH DIFF Routine 11/13/2024 2:49 PM CDT Chronic fatigue THYROID STIMULATING HORMONE (TSH) Routine 11/13/2024 2:49 PM CDT Chronic fatigue LIPID PANEL Routine 11/13/2024 2:49 PM CDT Other hyperlipidemia CMP (COMPREHENSIVE METABOLIC PANEL) Routine 11/13/2024 2:49 PM CDT Other hyperlipidemia HEMOGLOBIN A1C W/ ESTIMATED GLUCOSE Routine 11/13/2024 2:[address] CHEST SCREENING WO Routine 03/18/2024 3:05 PM CDT Multiple lung nodules on CT HM COLONOSCOPY Routine 04/25/2014 from Last 3 Months or Most Recently Relevant to Health Maintenance Results * (ABNORMAL) Urinalysis w/ Reflex (01/25/2025 3:00 AM CDT) SPECIFIC GRAVITY 1.025 1.003 - 1.030 01/25/2025 3:23 AM CDT [facility] URINE PH 6.0 5.0 - 9.0 01/25/2025 3:23 AM CDT [facility] WBC ESTERASE 100 /uL(A) Negative 01/25/2025 3:23 AM CDT [facility] NITRITE Negative Negative 01/25/2025 3:23 AM CDT [facility] PROTEIN, RANDOM URINE 30 mg/dL(A) Negative 01/25/2025 3:23 AM CDT [facility] URINE GLUCOSE, QUAL Negative Negative 01/25/2025 3:23 AM CDT [facility] URINE KETONES 150 mg/dL(A) Negative 3:23 AM CDT [facility] UROBILINOGEN 1 mg/dL(A) Normal mg/dL 01/25/2025 3:23 AM CDT [facility] URINE BLOOD 25 /uL(A) Negative deshawn/ul 01/25/2025 3:23 AM CDT [facility] URINALYSIS COLOR Yellow 01/25/2025 3:23 AM CDT [facility] URINALYSIS CLARITY Slightly Cloudy 01/25/2025 3:23 AM CDT [facility] WBC (Urine) 11-20(A) Negative, 0-5 /hpf 01/25/2025 3:23 AM CDT [facility] URINE RBC'S 0-2 Negative, 0-2 /hpf 01/25/2025 3:23 AM CDT [facility] EPITHELIAL CELLS Occasional /lpf 01/25/2025 3:23 AM CDT [facility] BACTERIA, URINE Few(A) Negative /hpf 01/25/2025 3:23 AM CDT [facility] URINE MUCOUS Many 01/25/2025 3:23 AM CDT [facility] Urine URINE SPECIMEN / Unknown Non-Phlebotomy Collection / Unknown 01/25/2025 3:00 AM CDT 01/25/2025 3:05 AM CDT us Wellington Zelaya MD URINE ORDERABLES Final Res ult [facility] [address] [place] [address] * Culture, Urine (01/25/2025 3:00 AM CDT) CULTURE RESULTS No growth final 01/26/2025 10:10 AM CDT [facility] Urine URINE SPECIMEN / Unknown Non-Phlebotomy Collection / Unknown 01/25/2025 3:00 AM CDT 01/25/2025 3:05 AM CDT us Wellington Zelaya MD MICROBIOLOGY - GENERAL ORD ERABLES Final Result [facility] [address] [place] [address], [place] * XR CHEST SINGLE VIEW PORTABLE (01/25/2025 2:08 AM CDT) Anatomical Region Laterality Modality Chest N/A Computed Radiogr aphy 01/25/2025 2:20 AM CDT Impressions 01/25/2025 2:22 AM CDT IMPRESSION: No acute abnormality identified. Narrative 01/25/2025 2:22 AM CDT EXAM DESCRIPTION: XR CHEST SINGLE VIEW PORTABLE REASON FOR STUDY: rapid atrial fib TECHNIQUE: Portable upright AP view of the chest. COMPARISON: 01/20/2025 FINDINGS: LUNGS AND PLEURA: No focal opacity, large effusion, or pneumothorax identified. HEART/MEDIASTINUM: Trachea midline. Cardiac silhouette normal in size. Mediastinal contours appear normal. BONES: Unremarkable. CHEST WALL: Unremarkable. UPPER ABDOMEN: Unremarkable. THIS IS AN ELECTRONICALLY VERIFIED FINAL REPORT 01/25/2025 2:20 AM - Electronically signed by Victoriano Rockwell M.D. AR: JEVON Report ID: [id number] Reading Location: [id number] Procedure Note Victoriano Rockwell MD - 01/25/2025 EXAM DESCRIPTION: XR CHEST SINGLE VIEW PORTABLE REASON FOR STUDY: rapid atrial fib TECHNIQUE: Portable upright AP view of the chest. COMPARISON: 01/20/2025 FINDINGS: LUNGS AND PLEURA: No focal opacity, large effusion, or pneumothorax identified. HEART/MEDIASTINUM: Trachea midline. Cardiac silhouette normal in size. Mediastinal contours appear normal. BONES: Unremarkable. CHEST WALL: Unremarkable. UPPER ABDOMEN: Unremarkable. THIS IS AN ELECTRONICALLY VERIFIED FINAL REPORT 01/25/2025 2:20 AM - Electronically signed by Victoriano Rockwell M.D. AR: JEVON Report ID: [id number] Reading Location: [place] [address] IMPRESSION: No acute abnormality identified. Wellington Zelaya MD IMG DIAGNOSTIC ORDERABLES Final Result * CT ABDOMEN PELVIS W/O CONTRAST (01/25/2025 2:08 AM CDT) Anatomical Region Laterality Modality Abdomen N/A Computed Tomogra phy 01/25/2025 2:25 AM CDT Impressions 01/25/2025 2:27 AM CDT IMPRESSION: Slight haziness around the bladder is nonspecific but could represent cystitis. No urolithiasis or urinary tract obstruction is seen. Large, nonenhancing defect across the mid aspect of the liver, previously characterized by MRI on 07/08/2024. Narrative 01/25/2025 2:27 AM CDT EXAM DESCRIPTION: CT ABDOMEN PELVIS W/O CONTRAST REASON FOR STUDY: Nausea, vomiting, decreased urination TECHNIQUE: CT scan of the abdomen and pelvis performed without intravenous and without oral contrast using helical scanning technique. Reconstructed coronal and sagittal MPR images reviewed. All images stored on PACS. Automated exposure control was used as a dose optimization technique for this examination. COMPARISON: 09/09/2021 FINDINGS: LOWER CHEST: Mild interstitial coarsening in the left lung base. Heart size normal. No effusion. LIVER/BILIARY: Large, nonenhancing defect across the mid aspect of the liver is new since 2021. This is characteristic of infarct and not clearly masslike. Hepatic steatosis. Biliary tree normal in caliber. GALLBLADDER: Absent. SPLEEN: Normal. PANCREAS: Advanced atrophy. ADRENAL GLANDS: Small right adenoma. KIDNEYS/URINARY TRACT: Slight haziness around the bladder. No clear wall thickening. Ureters and kidneys unremarkable. GI: Stomach and small bowel appear normal. Scattered noninflamed colonic diverticula. Normal appendix. OTHER ABDOMINAL/PELVIS: Major vascular structures are normal in caliber. No enlarged lymph node or free fluid. MSK: Moderate to advanced disc disease and facet arthropathy. Mild hip and SI joint arthrosis. BODY WALL: Unremarkable. THIS IS AN ELECTRONICALLY VERIFIED FINAL REPORT 01/25/2025 2:25 AM - Electronically signed by Victoriano Rockwell M.D. AR: JEVON Report ID: [id number] Reading Location: [id number] Procedure Note Victoriano Rockwell MD - 01/25/2025 EXAM DESCRIPTION: CT ABDOMEN PELVIS W/O CONTRAST REASON FOR STUDY: Nausea, vomiting, decreased urination TECHNIQUE: CT scan of the abdomen and pelvis performed without intravenous and without oral contrast using helical scanning technique. Reconstructed coronal and sagittal MPR images reviewed. All images stored on PACS. Automated exposure control was used as a dose optimization technique for this examination. COMPARISON: 09/09/2021 FINDINGS: LOWER CHEST: Mild interstitial coarsening in the left lung base. Heart size normal. No effusion. LIVER/BILIARY: Large, nonenhancing defect across the mid aspect of the liver is new since 2021. This is characteristic of infarct and not clearly masslike. Hepatic steatosis. Biliary tree normal in caliber. GALLBLADDER: Absent. SPLEEN: Normal. PANCREAS: Advanced atrophy. ADRENAL GLANDS: Small right adenoma. KIDNEYS/URINARY TRACT: Slight haziness around the bladder. No clear wall thickening. Ureters and kidneys unremarkable. GI: Stomach and small bowel appear normal. Scattered noninflamed colonic diverticula. Normal appendix. OTHER ABDOMINAL/PELVIS: Major vascular structures are normal in caliber. No enlarged lymph node or free fluid. MSK: Moderate to advanced disc disease and facet arthropathy. Mild hip and SI joint arthrosis. BODY WALL: Unremarkable. THIS IS AN ELECTRONICALLY VERIFIED FINAL REPORT 01/25/2025 2:25 AM - Electronically signed by Victoriano Rockwell M.D. AR: JEVON Report ID: [id number] Reading Location: [id number] IMPRESSION: Slight haziness around the bladder is nonspecific but could represent cystitis. No urolithiasis or urinary tract obstruction is seen. Large, nonenhancing defect across the mid aspect of the liver, previously characterized by MRI on 07/08/2024. Wellington Zelaya MD IMG CT ORDERABLES Final Re sult * TROPONIN I, HIGH SENSITIVITY (HSTRP) (01/25/2025 1:54 AM CDT) [facility] TROPONIN I, HIGH SENSITIVITY- [facility] 5 <=35 ng/L 01/25/2025 2:28 AM CDT [facility] Comment: High-sensitivity troponin I results are reported in ng/L making the result appear to be 1,000 times higher than the contemporary troponin I value which is reported in ng/ml. Results from [facility]. Blood Venipuncture / Unknown 01/25/2025 1:54 AM CDT 01/25/2025 2:03 AM CDT Wellington Zelaya MD CHEMISTRY ORDERABLES Final Result [facility] [address] [place] [address] * (ABNORMAL) CBC with Auto Differential (01/25/2025 1:54 AM CDT) Only the most recent of2 resultswithin the time period is included. [facility] WBC 13.08(H) 4.00 - 12.00 10(3)/mcL 01/25/2025 2:06 AM CDT [facility] RBC 4.45 4.40 - 5.80 10(6)/mcL 01/25/2025 2:06 AM CDT [facility] HEMOGLOBIN (HGB) 15.4 13.0 - 16.5 g/dL 01/25/2025 2:06 AM CDT [facility] HEMATOCRIT (HCT) 45.5 38.0 - 50.0 % 01/25/2025 2:06 AM CDT [facility] MCV 102.2(H) 82.0 - 96.0 fL 01/25/2025 2:06 AM CDT [facility] MCH 34.6(H) 26.0 - 32.0 pg 01/25/2025 2:06 AM CDT [facility] MCHC 33.8 31.0 - 36.0 g/dL 01/25/2025 2:06 AM CDT [facility] PLATELET COUNT 294 140 - 440 10(3)/mcL 01/25/2025 2:06 AM CDT [facility] RDW 12.1 11.8 - 15.5 % 01/25/2025 2:06 AM CDT [facility] MPV 9.5 8.0 - 12.6 fL 01/25/2025 2:06 AM CDT [facility] NEUTROPHILS 86.6(H) 40.0 - 68.0 % 01/25/2025 2:06 AM CDT [facility] LYMPHOCYTES 6.7(L) 19.0 - 49.0 % 01/25/2025 2:06 AM CDT [facility] MONOCYTES 6.0 3.0 - 13.0 % 01/25/2025 2:06 AM CDT [facility] EOSINOPHILS 0.2 0.0 - 8.0 % 01/25/2025 2:06 AM CDT [facility] BASOPHILS 0.5 0.0 - 1.0 % 01/25/2025 2:06 AM CDT [facility] ABSOLUTE NEUTROPHILS 11.33(H) 1.40 - 5.30 10(3)/mcL 01/25/2025 2:06 AM CDT [facility] ABSOLUTE LYMPHOCYTES 0.87(L) 0.90 - 3.30 10(3)/mcL 01/25/2025 2:06 AM CDT [facility] ABSOLUTE MONOCYTES 0.79 0.10 - 0.90 10(3)/mcL 01/25/2025 2:06 AM CDT [facility] ABSOLUTE EOSINOPHIL 0.02 0.00 - 0.50 10(3)/mcL 01/25/2025 2:06 AM CDT [facility] ABSOLUTE BASOPHILS 0.07 0.00 - 0.10 10(3)/mcL 01/25/2025 2:06 AM CDT [facility] NRBC PER 100 WBC 0 01/26/20 2:06 AM CDT [facility] Blood Venipuncture / Unknown 01/25/2025 1:54 AM CDT 01/25/2025 2:03 AM CDT Wellington Zelaya MD HEMATOLOGY ORDERABLES Emilee l Result Performing Organization Address City/[facility]/ZIP Co de Phone Number [facility] [address] [place] [address] * Magnesium (01/25/2025 1:54 AM CDT) MAGNESIUM 2.2 1.6 - 2.6 mg/dL 01/25/2025 2:26 AM CDT [facility] Blood Venipuncture / Unknown 01/25/2025 1:54 AM CDT 01/25/2025 2:03 AM CDT Wellington Zelaya MD CHEMISTRY ORDERABLES Final Result Performing Organization Address [facility] Co de Phone Number [facility] [address] [place] [address] * ETOH Level (01/25/2025 1:54 AM CDT) ETHANOL <10 <10 mg/dL 01/25/2025 2:2 6 AM CDT [facility] Blood Venipuncture / Unknown 01/25/2025 1:54 AM CDT 01/25/2025 2:03 AM CDT Wellington Zelaya MD CHEMISTRY ORDERABLES Final Result Performing Organization Address City/[facility]/ZIP Co de Phone Number [facility] [address] [place] [address] * (ABNORMAL) CMP (01/25/2025 1:54 AM CDT) Only the most recent of2 resultswithin the time period is included. SODIUM 140 136 - 145 mmol/L 01/25/2025 2:26 AM CDT [facility] POTASSIUM 3.9 3.5 - 5.1 mmol/L 01/25/2025 2:26 AM CDT [facility] CHLORIDE 102 98 - 107 mmol/L 01/25/2025 2:26 AM CDT [facility] CO2, VENOUS 24 22 - 30 mmol/L 01/25/2025 2:26 AM CDT [facility] ANION GAP 17.9 <18.0 mmol/L 01/25/2025 2:26 AM CDT [facility] GLUCOSE 105(H) 70 - 99 mg/dL 01/25/2025 2:26 AM CDT [facility] BUN 13 8 - 26 mg/dL 01/25/2025 2:26 AM CDT [facility] CREATININE, BLOOD 0.98 0.70 - 1.30 mg/dL 01/25/2025 2:26 AM CDT [facility] BUN/CREATININE RATIO 13 12 - 20 ratio 01/25/2025 2:26 AM CDT [facility] TOTAL PROTEIN 8.1(H) 6.0 - 8.0 g/dL 01/25/2025 2:26 AM CDT [facility] ALBUMIN 4.5 3.5 - 5.0 g/dL 01/25/2025 2:26 AM CDT [facility] A/G RATIO 1.3 1.0 - 2.2 01/25/2025 2:26 AM CDT [facility] CALCIUM 9.6 8.7 - 10.5 mg/dL 01/25/2025 2:26 AM CDT [facility] T BILI 0.9 0.2 - 1.2 mg/dL 01/25/2025 2:26 AM CDT [facility] SGOT (AST) 37 <43 U/L 01/25/2025 2:26 AM CDT [facility] SGPT (ALT) 26 <56 U/L 01/25/2025 2:26 AM CDT [facility] ALKALINE PHOSPHATASE 112 40 - 150 U/L 01/25/2025 2:26 AM CDT [facility] GFR, ESTIMATED >60 >=60 01/25/2025 2:26 AM CDT [facility] Comment: Creatinine Clearance is the preferred criteria for selecting drug dose adjustments in renally impaired patients. The GFR is provided as additional pertinent clinical information. GFR is reported in mL/min/1.73 sq m. Calculation based on the Chronic Kidney Disease Epidemiology Collaboration (CKD- EPI) equation refit without adjustment for race. GFR, EST. >60 >=60 025 2:26 AM CDT [facility] GFR, EST. NONAFRICAN >60 >=60 01/25/2025 2:26 AM CDT [facility] Blood Venipuncture / Unknown 01/25/2025 1:54 AM CDT 01/25/2025 2:03 AM CDT Wellington Zelaya MD CHEMISTRY ORDERABLES Final Result [facility] [address] [place] [address] * EKG 12 LEAD (01/25/2025 1:37 AM CDT) Ventricular Rate 123 BPM EXTERNAL EKG QRS Duration 88 ms EXTERNAL EKG Q-T Duration 316 ms EXTERNAL EKG QTC CALCULATION 452 ms EXTERNAL EKG R [place] 47 degrees EXTERNAL EKG T [place] 36 degrees EXTERNAL EKG 01/25/2025 1:37 AM CDT Impressions EXTERNAL EKG - 01/27/2025 9:15 AM CDT Atrial fibrillation with rapid ventricular response Abnormal ECG When compared with ECG of 10-FEB-2023 10:41, No significant change was found Confirmed by Brian Figueredo ([id number]) on 01/27/2025 9:15:24 AM Narrative Procedure Note Brian Figueredo MD - 01/27/2025 IMPRESSION: Atrial fibrillation with rapid ventricular response Abnormal ECG When compared with ECG of 10-FEB-2023 10:41, No significant change was found Confirmed by Brian Figueredo ([id number]) on 01/27/2025 9:15:24 AM us Wellington Zelaya MD IMG ECG ORDERABLES Final R esult EXTERNAL EKG * EKG SCAN (01/25/2025 12:00 AM CDT) 01/25/2025 us Provider Scan IMG ECG ORDERABLES Final Result Performing Organization Address City/[facility] Co de Phone Number RESULTING AGENCY * XR CHEST 2 VIEWS (01/20/2025 2:42 PM CDT) Anatomical Region Laterality Modality Chest N/A Digital Radiogra phy 01/25/2025 2:25 AM CDT Impressions 01/25/2025 2:28 AM CDT IMPRESSION: Unremarkable chest radiographs. Narrative 01/25/2025 2:28 AM CDT EXAM DESCRIPTION: XR CHEST 2 VIEWS REASON FOR STUDY: chronic right sided chest pain and shortness of breath x years. TECHNIQUE: Frontal and lateral views of the chest. COMPARISON: 02/10/2023 FINDINGS: LUNGS AND PLEURA: No focal airspace opacity, pleural effusion, or pneumothorax identified. HEART/MEDIASTINUM: Trachea midline. Cardiac silhouette normal in size. Mediastinal contours appear normal. BONES: Unremarkable. CHEST WALL: Unremarkable. UPPER ABDOMEN: Unremarkable. THIS IS AN ELECTRONICALLY VERIFIED FINAL REPORT 01/25/2025 2:25 AM - Electronically signed by Victoriano Rockwell M.D. AR: JEVON Report ID: [id number] Reading Location: [id number] Procedure Note Victoriano Rockwell MD - 01/25/2025 EXAM DESCRIPTION: XR CHEST 2 VIEWS REASON FOR STUDY: chronic right sided chest pain and shortness of breath x years. TECHNIQUE: Frontal and lateral views of the chest. COMPARISON: 02/10/2023 FINDINGS: LUNGS AND PLEURA: No focal airspace opacity, pleural effusion, or pneumothorax identified. HEART/MEDIASTINUM: Trachea midline. Cardiac silhouette normal in size. Mediastinal contours appear normal. BONES: Unremarkable. CHEST WALL: Unremarkable. UPPER ABDOMEN: Unremarkable. THIS IS AN ELECTRONICALLY VERIFIED FINAL REPORT 01/25/2025 2:25 AM - Electronically signed by Victoriano Rockwell M.D. AR: JEVON Report ID: [id number] Reading Location: [id number] IMPRESSION: Unremarkable chest radiographs. us Liborio Downs MD IMG DIAGNOSTIC ORDERABLES Final Result * HEMOGLOBIN A1C W/ ESTIMATED GLUCOSE (11/13/2024 2:49 PM CDT) HGB-A1C 5.4 4.0 - 6.0 % 11/13/2024 3:27 PM CDT [facility] Est Average Glucose 108.3 mg/dL 11/13/2024 3:27 PM CDT [facility] Blood Venipuncture / Unknown 11/13/2024 2:49 PM CDT 11/13/2024 3:06 PM CDT Narrative [facility] - 11/13/2024 3:27 PM CDT HEMOGLOBIN A1C: DIABETIC PATIENTS: WELL-CONTROLLED: 6.2 - 7.0 INTERMEDIATE WELL-CONTROLLED: 7.0 - 9.0 POORLY-CONTROLLED: >9.0 Specimens containing greater than 5% of Hemoglobin F may result in lower than expected % HbA1C results. us Kee Henao MD CHEMISTRY ORDERABLES Final Result [facility] [address] [place] [address] * HEPATITIS A ANTIBODY IGG (11/13/2024 2:49 PM CDT) HEP A IGG ANTIBODY NON DETECTED NON DETECTED 11/13/2024 10:47 PM CDT [facility] Blood Venipuncture / Unknown 11/13/2024 2:49 PM CDT 11/13/2024 3:06 PM CDT us Aundrea Marvin BRIQUETTING MACHINE OPERATOR, FISHERIES DIRECTOR CHEMISTRY ORDERAB LES Final Result [facility] [address] [place] [address], [place] * (ABNORMAL) FIBROTEST ACTITEST, SERUM, [facility] FIBRO (11/13/2024 2:49 PM CDT) FIBRO, FIBROTEST SCORE 0.37 8:46 AM CDT [facility] FIBRO, FIBROTEST STAGE F1-F2 8:46 AM CDT [facility] [employer] [facility] FIBRO, FIBROTEST INTERPRETATION minimal fibrosis 11/18/2024 8:46 AM CDT [facility] Comment: FibroTest estimates liver fibrosis FibroTest Score Stage Interpretation 0.00-0.21 F0 no fibrosis 0.21-0.27 F0-F1 no fibrosis 0.27-0.31 F1 minimal fibrosis 0.31-0.48 F1-F2 minimal fibrosis 0.48-0.58 F2 moderate fibrosis 0.58-0.72 F3 advanced fibrosis 0.72-0.74 F3-F4 advanced fibrosis 0.74-1.00 F4 severe fibrosis (Cirrhosis) FIBRO, ACTITEST SCORE 0.26 8:46 AM CDT [employer] FIBRO, ACTITEST GRADE A0-A1 8:46 AM CDT [facility] FIBRO, ACTITEST INTERPRETATION no activity 11/18/2024 8:46 AM CDT [employer] Comment: ActiTest estimates necroinflammatory activity ActiTest Score Grade Interpretation 0.00-0.17 A0 no activity 0.17-0.29 A0-A1 no activity 0.29-0.36 A1 minimal activity 0.36-0.52 A1-A2 minimal activity 0.52-0.60 A2 significant activity 0.60-0.62 A2-A3 significant activity 0.62-1.00 A3 severe activity FIBRO, FIBROTEST-ACTITEST COMMENT SEE NOTE 11/18/2024 8:46 AM CDT [facility] Comment: The reliability of results is dependent on compliance with the preanalytical and analytical conditions recommended by [employer]. The tests have to be deferred for: acute hemolysis, acute hepatitis, acute inflammation, extra hepatic cholestasis. The advice of a specialist should be sought for interpretation in chronic hemolysis and Gilbert's syndrome. The test interpretation is not validated in liver transplant patients. Isolated extreme values of one of the components should lead to caution in interpreting the results. In case of discordance between a biopsy result and a test, it is recommended to seek advice of a specialist. The causes of these discordances could be due to a flaw of the test or to a flaw in the biopsy: i.e. a liver biopsy has a 33% variability rate for one fibrosis stage. FibroTest is interpretable for chronic hepatitis B and C, alcoholic and non alcoholic steatosis. ActiTest is interpretable for chronic hepatitis B and C. ADDITIONAL INFORMATION This test was developed and its performance characteristics determined by [facility] in a manner consistent with CLIA requirements. This test has not been cleared or approved by the U.S. Food and Drug Administration. [employer] Industries[employer]ICTIVE SERIAL NUMBER [id number] 11/18/2024 8:46 AM CDT [facility] FIBRO, APOLIPOPROTEIN A1, S 127 >=120 mg/dL 11/18/2024 8:46 AM CDT [facility] FIBRO, [id number], S 148 100 - 280 mg/dL 11/18/2024 8:46 AM CDT [facility] FIBRO, HAPTOGLOBIN, S 185 30 - 200 mg/dL 11/18/2024 8:46 AM CDT [facility] FIBRO, ALANINE AMINOTRANSFERASE 43 7 - 55 U/L 11/18/2024 8:46 AM CDT [facility] FIBRO, GAMMA GLUTAMYILRANSFERASE (GGT), S 151(H) 8 - 61 U/L 11/18/2024 8:46 AM CDT [facility] FIBRO, BILIRUBIN, TOTAL, S 0.6 0.0 - 1.2 mg/dL 11/18/2024 8:46 AM CDT [facility] Comment: Test Performed by: [facility] [address] [place] [address] Director Of Food And Nutrition Services: Romana Simpson Ph.D.; CLIA# [id number] Test Performed by: [facility] [address] [place] [address] Director Of Food And Nutrition Services: Romana Simpson Ph.D.; CLIA# [id number] Blood Venipuncture / Unknown 11/13/2024 2:49 PM CDT 11/13/2024 3:06 PM CDT us Aundrea Marvin BRIQUETTING MACHINE OPERATOR, FISHERIES DIRECTOR LAB SEND OUT GENE TIC Final Result Performing Organization Address City/[facility]/ZIP Co de Phone Number [facility] * THYROID STIMULATING HORMONE (TSH) (11/13/2024 2:49 PM CDT) TSH 1.475 0.300 - 5.000 mIU/L 11/13/2024 3:47 PM CDT [facility] Blood Venipuncture / Unknown 11/13/2024 2:49 PM CDT 11/13/2024 3:06 PM CDT us Kee Henao MD CHEMISTRY ORDERABLES Final Result Performing Organization Address City/[facility]/ZIP Co de Phone Number [facility] [place] [address] * PSA SCREEN (11/13/2024 2:49 PM CDT) PSA SCREEN, TOTAL 1.13 <4.00 ng/mL 11/13/2024 3:49 PM CDT [facility] Blood Venipuncture / Unknown 11/13/2024 2:49 PM CDT 11/13/2024 3:06 PM CDT Narrative [facility] - 11/13/2024 3:49 PM CDT [employer] Total PSA assay is a Chemiluminescent Microparticle Immunoassay (CMIA) for the quantitative determination of total PSA (both free PSA and PSA complexed to [id number]) in human serum. Total PSA values obtained with different assay methods, including Paredes PSA assays, cannot be used interchangeably. us Kee Henao MD CHEMISTRY ORDERABLES Final Result [facility] [address] [place] [address] * (ABNORMAL) LIPID PANEL (11/13/2024 2:49 PM CDT) CHOLESTEROL 205(H) <200 mg/dL 11/13/2024 3:29 PM CDT [facility] TRIGLYCERIDES 277(H) <150 mg/dL 11/13/2024 3:29 PM CDT [facility] HDL CHOLESTEROL 39(L) >40 mg/dL 3:29 PM CDT [facility] LDL 111 <130 mg/dL 11/13/2024 3:29 PM CDT [facility] VLDL 55(H) 10 - 50 mg/dL 11/13/2024 3:29 PM CDT [facility] CHOL/HDL RATIO 5.3(H) 0.0 - 4.4 11/13/2024 3:29 PM CDT [facility] NON-HDL CHOLESTEROL 166(H) <130 mg/dL 11/13/2024 3:29 PM CDT [facility] Blood Venipuncture / Unknown 11/13/2024 2:49 PM CDT 11/13/2024 3:06 PM CDT Kee Henao MD CHEMISTRY ORDERABLES Final Result Performing Organization Address City/[facility]/ZIP Co de Phone Number [facility] [address] [place] [address] * HEPATITIS C ANTIBODY (11/13/2024 2:49 PM CDT) hepatitis C antibody 0.08 <1 S/CO 11/13/2024 10:03 PM CDT [facility] Comment: Signal/Cutoff ratio < 0.79 is Nondetected Signal/Cutoff ratio 0.80-0.99 is Grayzone Signal/Cutoff ratio > 0.99 is Detected Supplemental assays are recommended if signal/cutoff ratio is >/=1.00. Signal/cutoff ratio result >/= 5.00 is 97% predictive of positivity for recombinant immunoblot assay (RIBA) and will be reported to the [place] Department of Public Health as required. Blood Venipuncture / Unknown 11/13/2024 2:49 PM CDT 11/13/2024 3:06 PM CDT Aundrea Marvin BRIQUETTING MACHINE OPERATOR, FISHERIES DIRECTOR CHEMISTRY ORDERAB LES Final Result Performing Organization Address City/[facility]/ZIP Co de Phone Number [facility] [address] [place] [address], * HEPATITIS B SURFACE ANTIBODY (HBSAB) (11/13/2024 2:49 PM CDT) HEPATITIS B SURFACE ANTIBODY <8.00 mIU/mL 11/13/2024 10:03 PM CDT [facility] Comment:Individual is consid ered not immune to HBV infection. Blood Venipuncture / Unknown 11/13/2024 2:49 PM CDT 11/13/2024 3:06 PM CDT Aundrea Marvin BRIQUETTING MACHINE OPERATOR, FISHERIES DIRECTOR CHEMISTRY ORDERAB LES Final Result Performing Organization Address City/[facility]/ZIP Co de Phone Number [facility] [address] [place] [address], [place] * HEPATITIS B SURFACE ANTIGEN (HBSAG) (11/13/2024 2:49 PM CDT) HEPATITIS B SURFACE ANTIGEN NON DETECTED NON DETECTED 11/13/2024 3:51 PM CDT [facility] Comment:A nonreactive test r esult does not exclude the possibility of exposure to or infection with Hepatitis B virus. A nonreactive test result in individuals with prior exposure to hepatitis B may be due to antigen levels below the detection limit of this assay or lack of antigen reactivity to the antibodies in this assay. Blood Venipuncture / Unknown 11/13/2024 2:49 PM CDT 11/13/2024 3:06 PM CDT Aundrea Marvin BRIQUETTING MACHINE OPERATOR, FISHERIES DIRECTOR CHEMISTRY ORDERAB LES Final Result Performing Organization Address City/[facility] Co de Phone Number [facility] [address] [place] [address] * CT CHEST SCREENING WO (03/18/2024 3:05 PM CDT) Anatomical Region Laterality Modality Chest N/A Computed Tomogra phy 03/19/2024 8:27 AM CDT Impressions 03/19/2024 8:29 AM CDT IMPRESSION: Noncalcified pulmonary nodules measuring up to 3 mm are new. Other noncalcified pulmonary nodules are unchanged. Mild pulmonary emphysema. A 5.6 x 4.3 x 6.4 cm irregularly-shaped area of low attenuation adjacent to the gallbladder fossa was not present previously. This is indeterminate. This could represent a new focal area of fat but further evaluation with contrast-enhanced MRI is recommended. Lung-RADS category 2S: Benign appearance or behavior. Finding other than a pulmonary nodule which is potentially clinically significant. Recommendation: Low dose Screening CT of chest in 12 months. MRI of the liver. Narrative 03/19/2024 8:29 AM CDT EXAM DESCRIPTION: CT CHEST SCREENING WO REASON FOR STUDY: Screening CT of the chest in a current smoker with a 46 pack year smoking history. Additional history: None. TECHNIQUE: Low dose CT scan of the chest was performed without intravenous contrast using helical scanning technique. The exam extends from the lung apices through the lung bases. Automatic exposure control was used as a dose optimization technique. NOTE: This study was performed for the specific purposes of lung cancer screening and is not an alternative to diagnostic chest CT. RADIATION DOSE: CT dose index volume (CTDIvol) = 3.62 mGy COMPARISON: CT chest 09/06/2023 CT abdomen pelvis 09/09/2021 FINDINGS: SMOKING RELATED LUNG DISEASE: Mild pulmonary emphysema. Mild scarring in the lung apices is grossly similar. Minimal atelectasis in the anterior right lower lobe (image 202). Mild scarring in the medial left lower lobe is grossly similar when compared to the prior study. LUNG NODULES: Noncalcified 3 mm nodule in the right lower lobe (image 191) is new. Noncalcified 3 mm nodule in the lateral right upper lobe (image 80) is new. Noncalcified 2 mm nodule in the right middle lobe (image 141) is new. Minimal subpleural nodularity in the lateral right lower lobe (image 212) measuring up to 4 mm is unchanged. Noncalcified 3 mm nodules in the lateral right lower lobe (image 191) are unchanged. Noncalcified 2 mm nodule in the lateral right upper lobe (image 65) is unchanged. Ground-glass 5 mm nodule in the lateral right upper lobe (image 102) is unchanged. Lung cyst measuring 9 mm in the right upper lobe (image 70) is unchanged. Noncalcified 4 mm nodule abutting the minor fissure (image 116) is unchanged. PLEURAE: No pneumothorax or pleural effusion. CORONARY ARTERY CALCIFICATION: Absent MEDIASTINUM/ALEX: No mediastinal or hilar lymphadenopathy within the limitations of a noncontrast exam. HEART: Heart size is within normal limits. Trace pericardial effusion. VASCULATURE: No thoracic aortic aneurysm. AXILLAE: No lymphadenopathy. CHEST WALL: No masses. No subcutaneous air. HARDWARE/LINES/TUBES: None. UPPER ABDOMEN: There is a 5.6 x 4.3 x 6.4 cm irregularly-shaped area of low attenuation adjacent to the gallbladder fossa. This was not present previously. Prior cholecystectomy. Right adrenal nodule measuring 1.9 cm is indeterminate but unchanged from the prior studies likely representing adenoma. MUSCULOSKELETAL: Mild thoracic spondylosis. Mild compression fracture of L1 is unchanged. THIS IS AN ELECTRONICALLY VERIFIED FINAL REPORT 03/19/2024 8:27 AM - Electronically signed by Richard Wolf M.D. LB: LB Report ID: [id number] Reading Location: [id number] Procedure Note Richard Wolf MD - 03/19/2024 EXAM DESCRIPTION: CT CHEST SCREENING WO REASON FOR STUDY: Screening CT of the chest in a current smoker with a 46 pack year smoking history. Additional history: None. TECHNIQUE: Low dose CT scan of the chest was performed without intravenous contrast using helical scanning technique. The exam extends from the lung apices through the lung bases. Automatic exposure control was used as a dose optimization technique. NOTE: This study was performed for the specific purposes of lung cancer screening and is not an alternative to diagnostic chest CT. RADIATION DOSE: CT dose index volume (CTDIvol) = 3.62 mGy COMPARISON: CT chest 09/06/2023 CT abdomen pelvis 09/09/2021 FINDINGS: SMOKING RELATED LUNG DISEASE: Mild pulmonary emphysema. Mild scarring in the lung apices is grossly similar. Minimal atelectasis in the anterior right lower lobe (image 202). Mild scarring in the medial left lower lobe is grossly similar when compared to the prior study. LUNG NODULES: Noncalcified 3 mm nodule in the right lower lobe (image 191) is new. Noncalcified 3 mm nodule in the lateral right upper lobe (image 80) is new. Noncalcified 2 mm nodule in the right middle lobe (image 141) is new. Minimal subpleural nodularity in the lateral right lower lobe (image 212) measuring up to 4 mm is unchanged. Noncalcified 3 mm nodules in the lateral right lower lobe (image 191) are unchanged. Noncalcified 2 mm nodule in the lateral right upper lobe (image 65) is unchanged. Ground-glass 5 mm nodule in the lateral right upper lobe (image 102) is unchanged. Lung cyst measuring 9 mm in the right upper lobe (image 70) is unchanged. Noncalcified 4 mm nodule abutting the minor fissure (image 116) is unchanged. PLEURAE: No pneumothorax or pleural effusion. CORONARY ARTERY CALCIFICATION: Absent MEDIASTINUM/ALEX: No mediastinal or hilar lymphadenopathy within the limitations of a noncontrast exam. HEART: Heart size is within normal limits. Trace pericardial effusion. VASCULATURE: No thoracic aortic aneurysm. AXILLAE: No lymphadenopathy. CHEST WALL: No masses. No subcutaneous air. HARDWARE/LINES/TUBES: None. UPPER ABDOMEN: There is a 5.6 x 4.3 x 6.4 cm irregularly-shaped area of low attenuation adjacent to the gallbladder fossa. This was not present previously. Prior cholecystectomy. Right adrenal nodule measuring 1.9 cm is indeterminate but unchanged from the prior studies likely representing adenoma. MUSCULOSKELETAL: Mild thoracic spondylosis. Mild compression fracture of L1 is unchanged. THIS IS AN ELECTRONICALLY VERIFIED FINAL REPORT 03/19/2024 8:27 AM - Electronically signed by Richard Wolf M.D. LB: LB Report ID: [id number] Reading Location: [id number] IMPRESSION: Noncalcified pulmonary nodules measuring up to 3 mm are new. Other noncalcified pulmonary nodules are unchanged. Mild pulmonary emphysema. A 5.6 x 4.3 x 6.4 cm irregularly-shaped area of low attenuation adjacent to the gallbladder fossa was not present previously. This is indeterminate. This could represent a new focal area of fat but further evaluation with contrast-enhanced MRI is recommended. Lung-RADS category 2S: Benign appearance or behavior. Finding other than a pulmonary nodule which is potentially clinically significant. Recommendation: Low dose Screening CT of chest in 12 months. MRI of the liver. Jami Zimmer APRN, BIANKA IMG CT ORDERABLES Fin al Result * [facility] COLONOSCOPY (04/25/2014) Rodolfo Mobley MD PROCEDURE/MINOR SURGICAL ORDER CATALINA Edited Result - Final from Last 3 Months or Most Recently Relevant to Health Maintenance Insurance MEDICARE C [employer] [place] Advance Directives * Full Code (Latest Code Status on File) Date Activated Date Inactivated Comments 02/10/2023 4:19 PM 02/11/2023 4:45 PM CPR-Full Pablo atment: FULL ARREST: Attempt Resuscitation/CPR wit intubation and mechanical ventilation. PRE-ARREST: Use entire range of life support measures to stabilize the patient. * Full Code Date Activated Date Inactivated Comments 09/08/2021 4:59 PM 09/10/2021 8:55 PM CPR-Full Pablo atment: FULL ARREST: Attempt Resuscitation/CPR wit intubation and mechanical ventilation. PRE-ARREST: Use entire range of life support measures to stabilize the patient. * Full Code Date Activated Date Inactivated Comments 06/26/2019 8:41 PM 06/28/2019 8:18 PM CPR-Full Pablo atment: FULL ARREST: Attempt Resuscitation/CPR wit intubation and mechanical ventilation. PRE-ARREST: Use entire range of life support measures to stabilize the patient. * Full Code Date Activated Date Inactivated Comments 04/10/2019 5:03 PM 04/12/2019 3:56 PM CPR-Full Pablo atment: FULL ARREST: Attempt Resuscitation/CPR wit intubation and mechanical ventilation. PRE-ARREST: Use entire range of life support measures to stabilize the patient. * Full Code Date Activated Date Inactivated Comments 10/18/2017 8:17 AM 03/08/2018 10:00 AM Care Teams Metal Technician Relationship Specialty Start Date End Date Kee Henao MD [address] [place] [address] PCP - General Internal Medicine 12/01/21 Ronit Rockwell MD Consulting Physician Psychiatry 09/08/17 Randy Cruz MD [address] [id number] Consulting Physician Hematology 03/21/18 Jimena Davis MD [address] [id number] Consulting Physician Urology 03/25/19 Liborio Downs MD [address] [place] [address] Consulting Physician Pulmonary Disease 03/25/19 Manav Donohue MD [address] [place] [address] Consulting Physician Neurology 07/14/21 Heladio Blanco DPM Podiatry 11/24/21 Richard Whiting MD #[address] [address] Consulting Physician Colon and Rectal Surgery 02/03/23 Mary Ann Figueredo, BRIQUETTING MACHINE OPERATOR, FISHERIES DIRECTOR #[address] [address] Nurse Practitioner Cardiology 09/04/23 Jami Zimmer APRN, FISHERIES DIRECTOR #[address] [address] Nurse Practitioner Advanced Practice Nurse 03/14/22 Carol Kyle APRN, [facility] [address] [place] [address] Nurse Practitioner Advanced Practice Nurse 06/01/22 Aundrea Marvin APRN, FISHERIES DIRECTOR [address] [place] [address] Nurse Practitioner Advanced Practice Nurse 09/16/24
--- OUTSIDE RECORDS SUMMARY | 2025-01-31 14:58 | XMS_ITS | Encounter Summary ---
Author Organization [facility] Address [address] [place] [address] Phone Care Team Providers Care Shuttle Driver Name Role Phone Ronit Rockwell MD Unavailable [phone] Randy Cruz MD Unavailable [phone] Jimena Davis MD Unavailable [phone] Liborio Downs MD Unavailable Manav Donohue MD Unavailable [phone] Kee Henao MD Primary Care Provider [phone] Delvis Campos MD Unavailable Leann Heath RN Unavailable Unavaila Heladio Velázquez DPM Unavailable Unavailable Richard Whiting MD Unavailable Mary Ann Figueredo TUMBLER TENDER, BUSINESS ARCHITECT Unavailable + [phone] Jami Zimmer TUMBLER TENDER, BUSINESS ARCHITECT Unavailable [phone] Carol Kyle TUMBLER TENDER, MULTISENSOR INTELLIGENCE OFFICER Unavailable + [phone] Aundrea Marvin TUMBLER TENDER, BUSINESS ARCHITECT Unavailable Reason for Visit * Reason Comments Medication Refill Encounter Details Date Type Department Care Team (Late st Contact Info) Description 12/06/2022 [facility]ill [facility] - [facility] - [place] [address] [place] [address] Kee Henao MD [address] [place] [address] Medication Refill Social History Tobacco Use Types Packs/Day Years Used Date Smoking Tobacco: Every Day Cigarettes 0.5 45 Started: 07/13/1980; Last attempted to quit: 10/08/2019 Smokeless Tobacco: Never Alcohol Use Standard Drinks/Week Comments Not Currently 4 (1 standard drink = 0.6 oz [...] Telephone Encounter - Calli Chisholm RN - 12/06/2022 8:28 AM CDT Medication failed the protocol, provider to review and approve the medication order if appropriate. Requested Prescriptions Pending Prescriptions Disp Refills amitriptyline (ELAVIL) 25 MG Tablet [Pharmacy Med Name: AMITRIPTYLINE 25MG TABLETS] 30 Tablet 0 Sig: TAKE 1 TABLET BY MOUTH EVERY NIGHT Not Delegated - Tricyclic Agents Protocol Failed - 12/06/2022 5:48 AM Failed - This refill cannot be delegated Passed - Visit with relevant provider in past 12 months or upcoming 90 days Recent Visits Date Type Provider Dept 09/23/22 Office Visit Kathya Brink PAC [facility] 06/29/22 Office Visit Kee Henao MD [facility] 04/27/22 Office Visit Kee Henao MD [facility] 03/23/22 Office Visit Henao, MD [facility] 02/02/22 Office Visit Kee Henao MD [facility] Showing recent visits within past 365 days and meeting all other requirements Future Appointments No visits were found meeting these conditions. Showing future appointments within next 90 days and meeting all other requirements documented in this encounter Plan of Treatment Upcoming Encounters Date Type Department Care Team (Late st Contact Info) Description 04/14/2025 3:30 PM CDT Office Visit [facility] - Internal Medicine - [place] [address] [place] [address] Kee Henao MD [address] [facility] [place] [address] documented as of this encounter Goals Goal Patient Goal Type Associated Problems Recent Progress Patient-Stated? 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 Goal Reviewed with: patient Readiness to change: Ready to change Department associated with goal: [facility] Steps to achieve goal: [...] Ready to change Department associated with goal: [facility] Steps to achieve goal: Patient counseled on triggers for relapse Patient counseled on healthy coping skills to help maintain sobriety Patient encouraged to attend or , linkage to [facility] for [facility] resources Care Coordination Care Coordination On track(2020 2:12 PM CDT) Carlie Grijalva LSW Note: Patient will demonstrate knowledge of community resources (learn about [facility] homemaker services and Medicare Counselors at [facility]) Anticipated Completion Date: In the next 3 months Patient's Preferred Goal: Standard Challenges/Barriers: None Readiness to Change: Thinking about making a change Notify Care Team if: You do not have one of your basic needs met (food, correction, utility). Short Term Goals: Community Care Program for Seniors in [place] can provide homemakers (in home care), emergency response buttons, and automatic medication dispensers. To apply for any of these services call [facility] Case Coordination [facility] at [phone]. For information on choosing a new Medicare plan or about your Medicare benefits you can call [facility] and ask to speak with Hiram Walters at [phone] ext [phone] or call the the [place] [employer] Insurance Program at . Depression Depression [...] Team if in need of crisis services [phone] or (ph#) WILLIAM GREY will place a referral to [facility] for them to call you to schedule a telehealth appointment. If you do not receive a call from them in the next week feel free to call them at [phone] to schedule an appointment. documented as of this encounter Visit Diagnoses Not on filedocumented in this encounter Additional Health Concerns Assessment Noted Time PHQ-9 Depression Total Score: 9 05/05/20 21 2:00 PM CDT documented as of this encounter Care Teams Shuttle Driver Relationship Specialty Start Date End Date Kee Henao MD [address] [place] [address] PCP - General Internal Medicine 12/01/21 Ronit Rockwell MD Consulting Physician Psychiatry 09/08/17 Randy Cruz MD [address] [place], [place] [id number] Consulting Physician Hematology 03/21/18 Jimena Davis MD [address] [place] [address] Consulting Physician Urology 03/25/19 Liborio Downs MD [address] [place] [address] Consulting Physician Pulmonary Disease 03/25/19 Manav Donohue MD [address] [place] [address] Consulting Physician Neurology 07/14/21 Delvis Campos MD [address] [place] [address] Meter Reader Cardiovascular Disease - Cardiology 01/07/22 07/24/24 Leann Brennan, [place] Registered Nurse Cardiology 06/06/22 07/24/24 Heladio Blanco, DPM Podiatry 11/24/21 Richard Whiting MD #[address] [id number] Consulting Physician Colon and Rectal Surgery 02/03/23 Mary Ann Figueredo, TUMBLER TENDER, BUSINESS ARCHITECT #2 [facility], [address] [place] [address] Nurse Practitioner Cardiology 09/04/23 Jami Zimmer, TUMBLER TENDER, BUSINESS ARCHITECT #2 [facility] [address] [place] [address] Nurse Practitioner Advanced Practice Nurse 03/14/22 Carol Kyle, TUMBLER TENDER, MULTISENSOR INTELLIGENCE OFFICER [address] [place] [address] Nurse Practitioner Advanced Practice Nurse 06/01/22 Aundrea Marvin APRN, BUSINESS ARCHITECT [address] [place] [address] Nurse Practitioner Advanced Practice Nurse 09/16/24 documented as of this encounter
--- OUTSIDE RECORDS SUMMARY | 2025-01-31 14:58 | XMS_ITS | Encounter Summary ---
Author Organization [facility] Address [address] [place] [address] Phone Care Team Providers Care Snag Grinder Name Role Phone Yordan Feliz MD Primary Care Provider [phone] Ronit Rockwell MD Unavailable [phone] Randy Cruz MD Unavailable [phone] Jimena Davis MD Unavailable [phone] Liborio Downs MD Unavailable Carlie Ge Unavailable Unavailab Manav Alicia MD Unavailable [phone] Kee Henao MD Primary Care Provider [phone] Delvis Campos MD Unavailable Leann Heath RN Unavailable Unavaila Heladio Velázquez DPM Unavailable Unavailable Richard Whiting MD Unavailable Mary Ann Figueredo HUB ASSOCIATE, REPLENISHMENT BUYER Unavailable + [phone] Jami Zimmer HUB ASSOCIATE, REPLENISHMENT BUYER Unavailable [phone] Carol Kyle HUB ASSOCIATE, DRY GOODS CLERK Unavailable + [phone] Aundrea Marvin HUB ASSOCIATE, REPLENISHMENT BUYER Unavailable Reason for Visit * Reason Comments Medication Refill Encounter Details Date Type Department Care Team (Late Contact Info) Description 09/04/2020 [facility] [place] [address] [place] [id number] Yordan Feliz MD [address] [place] [address] Medication Refill Social History Tobacco Use Types Packs/Day Years Used Date Smoking Tobacco: Former Cigarettes 1 45 1 09/12/1979 - 10/08/2019 E-Vapor with Nicotine Smokeless Tobacco: Never Comments:about 12 a day Alcohol Use Standard Drinks/Week Comments Not Currently 43 (1 standard drink = 0.6 oz pu re alcohol) 6-8 a day Sexually Active Control Partners Comments Not Currently Sex and Gender Information Value Date Recorded [...] have Coronavirus / COVID-19? No / Unsure 2020 4:07 PM HEAD OF QUALITY documented as of this encounter Plan of Treatment Upcoming Encounters Date Type Department Care Team ([facility] Contact Info) Description 04/14/2025 3:30 PM CDT Office Visit [facility] - Internal Medicine - [place] [address] [place] [address] Kee Henao MD [address] [place] [address] documented as of this encounter Visit Diagnoses Not on filedocumented in this encounter Additional Health Concerns Infection Onset Date Last Indicated Resolved Time COVID - 19 09/08/2021 09/09/2021 09/29/2021 12:1 6 AM HEAD OF QUALITY Assessment Noted Time PHQ-9 Depression Total Score: 0 06/29/20 17 4:00 PM HEAD OF QUALITY documented as of this encounter Care Teams Snag Grinder Relationship Specialty Start Date End Date Yordan Feliz MD [address] [place] [address] PCP - General Internal Medicine 09/08/17 11/30/21 Kee Henao MD [address] [place] [address] PCP - General Internal Medicine 12/01/21 Ronit Rockwell MD [address] [place] [address] Consulting Physician Psychiatry 09/08/17 Randy Cruz MD [address] [place] [address] Consulting Physician Hematology 03/21/18 Jimena Davis MD [address] [id number] Consulting Physician Urology 03/25/19 Liborio Downs MD [address] [place] [address] Consulting Physician Pulmonary Disease 03/25/19 Carlie Ge, BUSINESS DEVELOPMENT ASSISTANT [place] Primary Class Teacher 03/12/21 04/13/21 Manav Donohue MD [address] [place] [id number] Consulting Physician Neurology 07/14/21 Delvis Campos MD [address] [place] [address] Mortuary Operations Manager Cardiovascular Disease - Cardiology 01/07/22 07/24/24 Leann Brennan, [place] Registered Nurse Cardiology 06/06/22 07/24/24 Heladio Blanco DPM Podiatry 11/24/21 Richard Whiting MD #2 [facility] [address] [place] [address] Consulting Physician Colon and Rectal Surgery 02/03/23 Mary Ann Figueredo APRN, REPLENISHMENT BUYER #2 [facility] [address] [place] [address] Nurse Practitioner Cardiology 09/04/23 Jami Zimmer APRN, REPLENISHMENT BUYER #2 [facility] [address] [place] [address] Nurse Practitioner Advanced Practice Nurse 03/14/22 Carol Kyle APRN, DRY GOODS CLERK [address] [place] [address] Nurse Practitioner Advanced Practice Nurse 06/01/22 Aundrea Marvin APRN, REPLENISHMENT BUYER [address] [place] [address] Nurse Practitioner Advanced Practice Nurse 09/16/24 documented as of this encounter
--- OUTSIDE RECORDS SUMMARY | 2025-01-31 14:58 | XMS_ITS | Encounter Summary ---
Author Organization [facility] Address [address] [place] [address] Phone Care Team Providers Care Prehemmer Name Role Phone Ronit Rockwell MD Unavailable [phone] Randy Cruz MD Unavailable [phone] Jimena Davis MD Unavailable [phone] Liborio Downs MD Unavailable Manav Donohue MD Unavailable [phone] Kee Henao MD Primary Care Provider [phone] Delvis Campos MD Unavailable Leann Heath RN Unavailable Unavaila Heladio Velázquez DPM Unavailable Unavailable Richard Whiting MD Unavailable Mary Ann Figueredo ELECTRONIC MAINTENANCE SUPERVISOR, RESERVATIONS AND TICKETING AGENT Unavailable + [phone] Jami Zimmer ELECTRONIC MAINTENANCE SUPERVISOR, RESERVATIONS AND TICKETING AGENT Unavailable [phone] Carol Kyle ELECTRONIC MAINTENANCE SUPERVISOR, GROUNDS WORKER Unavailable + [phone] Aundrea Marvin ELECTRONIC MAINTENANCE SUPERVISOR, RESERVATIONS AND TICKETING AGENT Unavailable Reason for Visit * Reason Comments Medication Refill Encounter Details Date Type Department Care Team (Late st Contact Info) Description 04/01/2023 Refill [facility] - Internal Medicine - [place] [address] [place] [address] Kee Henao MD [address] [place] [address] Medication Refill Social History Tobacco Use Types [...] Description 04/14/2025 3:30 PM CDT Office Visit [facility] [address] [place] [address] Kee Henao MD [address] [place] [address] documented as of this encounter Goals Goal Patient Goal Type Associated Problems Recent Progress Patient-Stated? 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 Goal Reviewed with: patient Readiness to change: Ready to change Department associated with goal: [facility] Steps to achieve goal: Patient to be counseled on coping skills for anxiety Patient to be counseled on importance of medication compliance, seeing a psychiatrist Patient to be counseled on breathing and relaxation techniques Behavioral Health Behavioral Health On track(2020 4:24 PM CDT) Juan Ochoa LCSW Note: Goal: Patient will be able to report decreased alcohol/substance usage, along with increased insight into addiction Goal Reviewed with: patient Readiness to change: Ready to change Department associated with goal: [facility] Steps to achieve goal: Patient counseled on triggers for relapse Patient counseled on healthy coping skills to help maintain sobriety Patient encouraged to attend AA or NA, linkage to Navigation for community resources Care Coordination Care Coordination On track(2020 2:12 PM CDT) Carlie Grijalva LSW Note: Patient will demonstrate knowledge of community resources (learn about [facility] homemaker services and Medicare Counselors at [facility]) Anticipated Completion Date: In the next 3 months Patient's Preferred Goal: Standard Challenges/Barriers: None Readiness to Change: Thinking about making a change Notify Care Team if: You do not have one of your basic needs met (food, usp, utility). Short Term Goals: Community Care Program for Seniors in [place] can provide homemakers (in home care), emergency response buttons, and automatic medication dispensers. To apply for any of these services call [facility] Case Coordination [facility] at [phone]. For information on choosing a new Medicare plan or about your Medicare benefits you can call [facility] and ask to speak with Hiram Walters at [phone] or call the the [place] [email or web address] Health Insurance Program at . Depression Depression [...] Team if in need of crisis services [phone] or (ph#) WILLIAM will place a referral to [facility] for them to call you to schedule a telehealth appointment. If you do not receive a call from them in the next week feel free to call them at [phone] to schedule an appointment. documented as of this encounter Visit Diagnoses Diagnosis RLS (restless legs syndrome) Restless legs syndrome (RLS) documented in this encounter Additional Health Concerns Assessment Noted Time PHQ-9 Depression Total Score: 9 05/05/20 21 2:00 PM CDT documented as of this encounter Care Teams Prehemmer Relationship Specialty Start Date End Date Kee Henao MD [address] [place] [address] PCP - General Internal Medicine 12/01/21 Ronit Rockwell MD Consulting Physician Psychiatry 09/08/17 Randy Cruz MD [address] [place] [address] Consulting Physician Hematology 03/21/18 Jimena Davis MD [address] [place] [address] Consulting Physician Urology 03/25/19 Liborio Downs MD [address] [place] [address] Consulting Physician Pulmonary Disease 03/25/19 Manav Donohue MD #[address] [place] [address] Consulting Physician Neurology 07/14/21 Delvis Campos MD [address] [place] [address] Resaw Feeder Cardiovascular Disease - Cardiology 01/07/22 07/24/24 Leann Brennan, [place] Registered Nurse Cardiology 06/06/22 07/24/24 Heladio Blanco, DPM Podiatry 11/24/21 Richard Whiting MD #2 [facility] [address] [place] [address] Consulting Physician Colon and Rectal Surgery 02/03/23 Mary Ann Figueredo APRN, RESERVATIONS AND TICKETING AGENT #2 [facility] [address] [place] [address] Nurse Practitioner Cardiology 09/04/23 Jami Zimmer, ELECTRONIC MAINTENANCE SUPERVISOR, RESERVATIONS AND TICKETING AGENT #2 [facility] [address] [place] [address] Nurse Practitioner Advanced Practice Nurse 03/14/22 Carol Kyle, ELECTRONIC MAINTENANCE SUPERVISOR, GROUNDS WORKER #[address] [place] [address] Nurse Practitioner Advanced Practice Nurse 06/01/22 Aundrea Marvin ELECTRONIC MAINTENANCE SUPERVISOR, RESERVATIONS AND TICKETING AGENT #[address] [place] [address] Nurse Practitioner Advanced Practice Nurse 09/16/24 documented as of this encounter
--- OUTSIDE RECORDS SUMMARY | 2025-01-31 14:58 | XMS_ITS | Encounter Summary ---
Author Organization [facility] Address [address] [place] [address] Phone Care Team Providers Care Supervisor Poultry Hatchery Name Role Phone Yordan Feliz MD Primary Care Provider [phone] Ronit Rockwell MD Unavailable [phone] Randy Cruz MD Unavailable [phone] Jimena Davis MD Unavailable Liborio Downs MD Unavailable Manav Donohue MD Unavailable [phone] Kee Henao MD Primary Care Provider [phone] Delvis Campos MD Unavailable Leann Heath RN Unavailable Unavaila Healdio Velázquez DPM Unavailable Unavailable Richard Whiting MD Unavailable Mary Ann Figueredo MACHINE STONE POLISHER APPRENTICE, ROUTE SALES TRAINEE Unavailable + [phone] Jami Zimmer MACHINE STONE POLISHER APPRENTICE, ROUTE SALES TRAINEE Unavailable [phone] Carol Kyle MACHINE STONE POLISHER APPRENTICE, PRE SALES TECHNICAL ENGINEER Unavailable + [phone] Aundrea Marvin MACHINE STONE POLISHER APPRENTICE, ROUTE SALES TRAINEE Unavailable Reason for Visit * Reason Comments Medication Refill Encounter Details Date Type Department Care Team (Late st Contact Info) Description 05/17/2021 [facility] [address] [place] [phone] Manav Donohue MD [address] [place] [phone] Medication Refill Social History Tobacco Use Types Packs/Day Years Used Date Smoking Tobacco: Every Day Cigarettes 1 45 Started: 07/13/1980; Last attempted to quit: [...] have Coronavirus / COVID-19? No / Unsure 05/07/2021 1:57 PM CDT documented as of this encounter Plan of Treatment Upcoming Encounters Date Type Department Care Team (Late Contact Info) Description 04/14/2025 3:30 PM CDT Office Visit [facility] - Internal Medicine [place] [address] [place] [id number] Kee Henao MD [address] [place] [address] documented as of this encounter Goals Goal Patient Goal Type Associated Problems Recent Progress Patient-Stated? Author Care Coordination Care Coordination On track(2020 2:12 PM CDT) No Carlie Ge LSW Note: Patient will demonstrate knowledge of community resources (learn about [facility] homemaker services and Medicare Counselors at [facility]) Anticipated Completion Date: In the next 3 months Patient's Preferred Goal: Standard Challenges/Barriers: None Readiness to Change: Thinking about making a change Notify Care Team if: You do not have one of your basic needs met (food, [place] [facility] [place], utility). Short Term Goals: Community Care Program for Seniors in [place] can provide homemakers (in home care), emergency response buttons, and automatic medication dispensers. To apply for any of these services call [facility] at [phone]. For information on choosing a new Medicare plan or about your Medicare benefits you can call [facility] and ask to speak with Hiram Walters at [phone] ext [phone] or call the the [place] [employer] Health Insurance Program at . Depression Depression [...] Team if in need of crisis services [phone] or (ph#) WILLIAM GREY will place a referral to [facility] for them to call you to schedule a telehealth appointment. If you do not receive a call from them in the next week feel free to call them at [phone] to schedule an appointment. documented as of this encounter Visit Diagnoses Not on filedocumented in this encounter Additional Health Concerns Infection Onset Date Last Indicated Resolved Time COVID - 19 09/08/2021 09/09/2021 09/29/2021 12:1 6 AM DRUG ABUSE WORKER Assessment Noted Time PHQ-9 Depression Total Score: 9 05/05/20 21 2:00 PM CDT documented as of this encounter Care Teams Supervisor Poultry Hatchery Relationship Specialty Start Date End Date Yordan Feliz MD [address] [place] [address] PCP - General Internal Medicine 09/08/17 11/30/21 Kee Henao MD [address] [place] [address] PCP - General Internal Medicine 12/01/21 Ronit Rockwell MD [address] [place] [address] Consulting Physician Psychiatry 09/08/17 Randy Cruz MD [address] [place] [address] Consulting Physician Hematology 03/21/18 Jimena Davis MD [address] [place] [address] Consulting Physician Urology 03/25/19 Liborio Downs MD [address] [place] [phone] Consulting Physician Pulmonary Disease 03/25/19 Manav Donohue MD [address] [place] [address] Consulting Physician Neurology 07/14/21 Delvis Campos MD [address] [place] [address] Press Washer Cardiovascular Disease - Cardiology 01/07/22 07/24/24 Leann Brennan RN [place] Registered Nurse Cardiology 06/06/22 07/24/24 Heladio Blanco DPM Podiatry 11/24/21 Richard Whiting MD #2 [facility] [address] [place] [address] Consulting Physician Colon and Rectal Surgery 02/03/23 Mary Ann Figueredo MACHINE STONE POLISHER APPRENTICE, ROUTE SALES TRAINEE #2 [facility] [address] [place] [address] Nurse Practitioner Cardiology 09/04/23 Jami Zimmer APRN, ROUTE SALES TRAINEE #2 [facility] [address] [place] [address] Nurse Practitioner Advanced Practice Nurse 03/14/22 Carol Kyle MACHINE STONE POLISHER APPRENTICE, PRE SALES TECHNICAL ENGINEER [address] [place] [address] Nurse Practitioner Advanced Practice Nurse 06/01/22 Aundrea Marvin APRN, ROUTE SALES TRAINEE [address] [place] [address] Nurse Practitioner Advanced Practice Nurse 09/16/24 documented as of this encounter
--- OUTSIDE RECORDS SUMMARY | 2025-01-31 14:58 | XMS_ITS | Encounter Summary ---
Author Organization [facility] Address [address] [place] [address] Phone Care Team Providers Care Drag Car Racer Name Role Phone Ronit Rockwell MD Unavailable [phone] Randy Cruz MD Unavailable [phone] Jimena Davis MD Unavailable [phone] Liborio Downs MD Unavailable Manav Donohue MD Unavailable [phone] Kee Henao MD Primary Care Provider [phone] Delvis Campos MD Unavailable Leann Heath RN Unavailable Unavaila Heladio Velázquez DPM Unavailable Unavailable Richard Whiting MD Unavailable Mary Ann Figueredo ASSURANCE AUDITOR, STOCK PLAN ADMINISTRATOR Unavailable + [phone] Jami Zimmer ASSURANCE AUDITOR, STOCK PLAN ADMINISTRATOR Unavailable [phone] Carol Kyle ASSURANCE AUDITOR, DATA WAREHOUSE SPECIALIST Unavailable + [phone] Aundrea Marvin ASSURANCE AUDITOR, STOCK PLAN ADMINISTRATOR Unavailable Reason for Visit * Reason Comments Medication Refill Encounter Details Date Type Department Care Team (Late st Contact Info) Description 04/01/2023 [facility]ill [facility] - [place] [address] [place] [address] Kee Henao MD [address] [place] [address] Medication Refill Social History Tobacco Use Types [...] Telephone Encounter - Calli Chisholm RN - 04/03/2023 8:08 AM CDT Medication failed the protocol, provider to review and approve the medication order if appropriate. Requested Prescriptions Pending Prescriptions Disp Refills gabapentin (NEURONTIN) 800 MG Tablet [Pharmacy Med Name: GABAPENTIN 800MG TABLETS] 90 Tablet 3 Sig: TAKE 1 TABLET BY MOUTH THREE TIMES DAILY Not Delegated - Anticonvulsants Excluding Benzodiazepines Protocol Failed - 04/01/2023 9:20 AM Failed - This refill cannot be delegated Passed - Visit with relevant provider in past 12 months or upcoming 90 days Recent Visits Date Type Provider Dept 09/23/22 Office Visit Kathya Brink PAC [facility] 06/29/22 [facility] Office Visit Kee Henao MD [facility] Showing recent visits within past 365 days and meeting all other requirements Future Appointments No visits were found meeting these conditions. Showing future appointments within next 90 days and meeting all other requirements documented in this encounter Plan of Treatment Upcoming Encounters Date Type Department Care Team (Late st Contact Info) Description 04/14/2025 3:30 PM CDT Office Visit [facility] - Internal Medicine - [place] [address] [place] [phone] Kee Henao MD [address] [place] [address] documented as of this encounter Goals Goal Patient Goal Type Associated Problems Recent Progress Patient-Stated? 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 Goal Reviewed with: patient Readiness to change: Ready to change Department associated with goal: [facility] Steps to achieve [...] Ready to change Department associated with goal: [facility] Steps to achieve goal: Patient counseled on triggers for relapse Patient counseled on healthy coping skills to help maintain sobriety Patient encouraged to attend AA or NA, linkage to Navigation for community resources Care Coordination Care Coordination On track(2020 2:12 PM CDT) No Carlie Ge LSW Note: Patient will demonstrate knowledge of community resources (learn about [facility] homemaker services and Medicare Counselors at [facility]) Anticipated Completion Date: In the next 3 months Patient's Preferred Goal: Standard Challenges/Barriers: None Readiness to Change: Thinking about making a change Notify Care Team if: You do not have one of your basic needs met (food, [place], utility). Short Term Goals: Community Care Program for Seniors in [place] can provide homemakers (in home care), emergency response buttons, and automatic medication dispensers. To apply for any of these services call [facility] at [phone]. For information on choosing a new Medicare plan or about your Medicare benefits you can call [email or web address] and ask to speak with Hiram Walters at [phone] or call the the [place] [employer] Health Insurance Program at . Depression Depression [...] Team if in need of crisis services [phone] or (ph#) WILLIAM GREY will place a referral to [facility] for them to call you to schedule a telehealth appointment. If you do not receive a call from them in the next week feel free to call them at [phone] to schedule an appointment. documented as of this encounter Visit Diagnoses Diagnosis RLS (restless legs syndrome) Restless legs syndrome (RLS) documented in this encounter Additional Health Concerns Assessment Noted Time PHQ-9 Depression Total Score: 9 05/05/20 21 2:00 PM CDT documented as of this encounter Care Teams Drag Car Racer Relationship Specialty Start Date End Date Kee Hneao [place] [address] PCP - General Internal Medicine 12/01/21 Ronit Rockwell MD Consulting Physician Psychiatry 09/08/17 Randy Cruz MD [address] [place] [address] Consulting Physician Hematology 03/21/18 Jimena Davis MD [address] [place], [place] [address] Consulting Physician Urology 03/25/19 Liborio Downs MD [address] [place] [address] Consulting Physician Pulmonary Disease 03/25/19 Manav Donohue MD [address] [place] [address] Consulting Physician Neurology 07/14/21 Delvis Campos MD [address] [place] [address] Procurement Consultant Cardiovascular Disease - Cardiology 01/07/22 07/24/24 Leann Brennan, [place] Registered Nurse Cardiology 06/06/22 07/24/24 Heladio Blanco, DPM Podiatry 11/24/21 Richard Whiting MD [address] [id number] Consulting Physician Colon and Rectal Surgery 02/03/23 Mary Ann Figueredo, ASSURANCE AUDITOR, STOCK PLAN ADMINISTRATOR #[address] [address] Nurse Practitioner Cardiology 09/04/23 Jami Zimmer APRN, STOCK PLAN ADMINISTRATOR #2 [facility] [address] [place] [address] Nurse Practitioner Advanced Practice Nurse 03/14/22 Carol Kyle APRN, DATA WAREHOUSE SPECIALIST [address] [place] [address] Nurse Practitioner Advanced Practice Nurse 06/01/22 Aundrea Marvin APRN, STOCK PLAN ADMINISTRATOR [address] [place] [address] Nurse Practitioner Advanced Practice Nurse 09/16/24 documented as of this encounter
--- OUTSIDE RECORDS SUMMARY | 2025-01-31 14:58 | XMS_ITS | Encounter Summary ---
Author Organization [facility] Address [address] [place] [address] Phone Care Team Providers Care Qa Automation Architect Name Role Phone Ronit Rockwell MD Unavailable [phone] Randy Cruz MD Unavailable [phone] Jimena Davis MD Unavailable [phone] Liborio Downs MD Unavailable Manav Donohue MD Unavailable [phone] Kee Henao MD Primary Care Provider [phone] Delvis Campos MD Unavailable Leann Heath RN Unavailable Unavaila Heladio Velázquez DPM Unavailable Unavailable Richard Whiting MD Unavailable Mary Ann Figueredo WAXING MACHINE OPERATOR, MACHINE STOPPAGE FREQUENCY CHECKER Unavailable + [phone] Jami Zimmer WAXING MACHINE OPERATOR, MACHINE STOPPAGE FREQUENCY CHECKER Unavailable [phone] Carol Kyle WAXING MACHINE OPERATOR, LICENSED NUCLEAR OPERATOR Unavailable + [phone] Aundrea Marvin WAXING MACHINE OPERATOR, MACHINE STOPPAGE FREQUENCY CHECKER Unavailable Reason for Visit * Reason Comments Medication Refill Encounter Details Date Type Department Care Team (Late st Contact Info) Description 06/19/2023 Refill [facility] - [facility] - [place] [address] [facility] [place] [address] Kee Henao MD [address] [place] [address] Medication Refill Social History Tobacco Use Types [...] Description 04/14/2025 3:30 PM CDT Office Visit [facility] [address] [place] [address] Kee Henao MD [address] [place] [address] documented as of this encounter Goals Goal Patient Goal Type Associated Problems Recent Progress Patient-Stated? 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 Goal Reviewed with: patient Readiness to change: Ready to change Department associated with goal: [facility] Steps to achieve [...] Ready to change Department associated with goal: [facility] Steps to achieve goal: Patient counseled on triggers for relapse Patient counseled on healthy coping skills to help maintain sobriety Patient encouraged to attend AA or NA, linkage to Navigation for community resources Care Coordination Care Coordination On track(2020 2:12 PM CDT) Carlie Grijalva LSW Note: Patient will demonstrate knowledge of community resources (learn about [facility] homemaker services and Medicare Counselors at [facility]) Anticipated Completion Date: In the next 3 months Patient's Preferred Goal: Standard Challenges/Barriers: None Readiness to Change: Thinking about making a change Notify Care Team if: You do not have one of your basic needs met (food, half-way, utility). Short Term Goals: Community Care Program for Seniors in [place] can provide homemakers (in home care), emergency response buttons, and automatic medication dispensers. To apply for any of these services call [facility] at [phone]. For information on choosing a new Medicare plan or about your Medicare benefits you can call [facility] and ask to speak with Hiram Walters at [phone] or call the the [place] [employer] Health Insurance Program at . Depression Depression [...] Team if in need of crisis services [phone] or (ph#) WILLIAM GREY will place a referral to [facility] for them to call you to schedule a telehealth appointment. If you do not receive a call from them in the next week feel free to call them at [phone] to schedule an appointment. documented as of this encounter Visit Diagnoses Not on filedocumented in this encounter Additional Health Concerns Assessment Noted Time PHQ-9 Depression Total Score: 9 05/05/20 21 2:00 PM CDT documented as of this encounter Care Teams Qa Automation Architect Relationship Specialty Start Date End Date Kee Henao MD [address] [place] [address] PCP - General Internal Medicine 12/01/21 Ronit Rockwell MD Consulting Physician Psychiatry 09/08/17 Rnady Cruz MD [address] [place] [address] Consulting Physician Hematology 03/21/18 Jimena Davis MD [address] [place] [address] Consulting Physician Urology 03/25/19 Liborio Downs MD [address] [place] [address] Consulting Physician Pulmonary Disease 03/25/19 Manav Donohue MD [address] [place] [address] Consulting Physician Neurology 07/14/21 Delvis Campos MD [address] [facility] [place] [address] Copper Tapper Cardiovascular Disease - Cardiology 01/07/22 07/24/24 Leann Brennan, [place] Registered Nurse Cardiology 06/06/22 07/24/24 Heladio Blanco, DPM Podiatry 11/24/21 Richard Whiting MD [address]2 [facility] [address] [place] [address] Consulting Physician Colon and Rectal Surgery 02/03/23 Mary Ann Figueredo APRN, MACHINE STOPPAGE FREQUENCY CHECKER #2 [facility] [address] [place] [address] Nurse Practitioner Cardiology 09/04/23 Jami Zimmer APRN, MACHINE STOPPAGE FREQUENCY CHECKER #2 [facility] [address] [place] [address] Nurse Practitioner Advanced Practice Nurse 03/14/22 Carol Kyle APRN, LICENSED NUCLEAR OPERATOR [address] [place] [address] Nurse Practitioner Advanced Practice Nurse 06/01/22 Aundrea Marvin APRN, MACHINE STOPPAGE FREQUENCY CHECKER [address] [place] [address] Nurse Practitioner Advanced Practice Nurse 09/16/24 documented as of this encounter
--- OUTSIDE RECORDS SUMMARY | 2025-01-31 14:58 | XMS_ITS | Encounter Summary ---
Author Organization [facility] Address [address] [place] [address] Phone Care Team Providers Care Dramatic Critic Name Role Phone Ronit Rockwell MD Unavailable [phone] Randy Cruz MD Unavailable [phone] Jimena Davis MD Unavailable [phone] Liborio Downs MD Unavailable Manav Donohue MD Unavailable [phone] Kee Henao MD Primary Care Provider [phone] Delvis Campos MD Unavailable Leann Heath RN Unavailable Unavaila Heladio Velázquez DPM Unavailable Unavailable Richard Whiting MD Unavailable Mary Ann Figueredo CIO, PHYSICAL DAMAGE APPRAISER Unavailable + [phone] Jami Zimmer CIO, PHYSICAL DAMAGE APPRAISER Unavailable [phone] Carol Kyle CIO, LIPSTICK MOLDER Unavailable + [phone] Aundrea Marvin CIO, PHYSICAL DAMAGE APPRAISER Unavailable Reason for Visit * Reason Comments Medication Refill Encounter Details Date Type Department Care Team (Late st Contact Info) Description 11/17/2022 [facility]ill [facility] - [facility] - [place] [address] [place] [address] Kee Henao MD [address] [place] [address] Medication Refill Social History Tobacco Use Types [...] Telephone Encounter - Calli Chisholm RN - 11/17/2022 8:07 AM CDT Medication failed the protocol, provider to review and approve the medication order if appropriate. Requested Prescriptions Pending Prescriptions Disp Refills amitriptyline (ELAVIL) 25 MG Tablet [Pharmacy Med Name: AMITRIPTYLINE 25MG TABLETS] 30 Tablet 2 Sig: TAKE 1 TABLET BY MOUTH EVERY NIGHT Not Delegated - Tricyclic Agents Protocol Failed - 11/17/2022 5:50 AM Failed - This refill cannot be delegated Passed - Visit with relevant provider in past 12 months or upcoming 90 days Recent Visits Date Type Provider Dept 09/23/22 Office Visit Kath[facility] Brink [facility] 06/29/22 Office Visit Kee Henao MD [facility] 04/27/22 Office Visit Kee Henao MD [facility] 03/23/22 Office [facility] [place] 02/02/22 Office Visit Kee Henao MD [facility] [place] 12/03/21 Office Visit Kee Henao MD [facility] [place] Showing recent visits within past 365 days and meeting all other requirements Future Appointments No visits were found meeting these conditions. Showing future appointments within next 90 days and meeting all other requirements documented in this encounter Plan of Treatment Upcoming Encounters Date Type Department Care Team (Late st Contact Info) Description 04/14/2025 3:30 PM CDT Office Visit [facility] - Internal Medicine - [place] [address] [place] [address] Kee Henao MD [address] [place] [address] documented as of this encounter Goals Goal Patient Goal Type Associated Problems Recent Progress Patient-Stated? 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 Goal Reviewed with: patient Readiness to change: Ready to change Department associated with goal: [facility] Steps to [...] Ready to change Department associated with goal: [facility] Steps to achieve goal: Patient counseled on triggers for relapse Patient counseled on healthy coping skills to help maintain sobriety Patient encouraged to attend AA or NA, linkage to Navigation for community resources Care Coordination Care Coordination On track(2020 2:12 PM CDT) Carlie Grijalva LSW Note: Patient will demonstrate knowledge of community resources (learn about [facility] homemaker services and Medicare Counselors at [facility]) Anticipated Completion Date: In the next 3 months Patient's Preferred Goal: Standard Challenges/Barriers: None Readiness to Change: Thinking about making a change Notify Care Team if: You do not have one of your basic needs met (food, skilled nursing, utility). Short Term Goals: Community Care Program for Seniors in [place] can provide homemakers (in home care), emergency response buttons, and automatic medication dispensers. To apply for any of these services call [facility] at [phone]. For information on choosing a new Medicare plan or about your Medicare benefits you can call [facility] and ask to speak with Hiram Walters at [phone] or call the the [place] [employer] Insurance Program at . Depression Depression [...] Team if in need of crisis services [phone] or (ph#) WILLIAM GREY will place a referral to [facility] for them to call you to schedule a telehealth appointment. If you do not receive a call from them in the next week feel free to call them at [phone] to schedule an appointment. documented as of this encounter Visit Diagnoses Not on filedocumented in this encounter Additional Health Concerns Assessment Noted Time PHQ-9 Depression Total Score: 9 09/15/20 21 2:00 PM CDT documented as of this encounter Care Teams Dramatic Critic Relationship Specialty Start Date End Date Kee Henao MD [address] [place] [address] PCP - General Internal Medicine 12/01/21 Ronit Rockwell MD Consulting Physician Psychiatry 09/08/17 Randy Cruz MD [address] [place] [address] Consulting Physician Hematology 03/21/18 Jimena Davis MD [address] [place] [address] Consulting Physician Urology 03/25/19 Liborio Downs MD [address] [place] [phone] Consulting Physician Pulmonary Disease 03/25/19 Manav Donohue MD [address] [place] [phone] Consulting Physician Neurology 07/14/21 Delvis Campos MD [address] [place] [address] Director Clinical Operations Cardiovascular Disease - Cardiology 01/07/22 07/24/24 Leann Brennan, MELIS[place] Registered Nurse Cardiology 06/06/22 07/24/24 Heladio Blanco, DPM Podiatry 11/24/21 Richard Whiting MD [address] [address] Consulting Physician Colon and Rectal Surgery 02/03/23 Mary Ann Figueredo APRN, PHYSICAL DAMAGE APPRAISER [address] [facility] [address] [place] [address] Nurse Practitioner Cardiology 09/04/23 Jami Zimmer CIO, PHYSICAL DAMAGE APPRAISER [address] [facility] [address] [place] [address] Nurse Practitioner Advanced Practice Nurse 03/14/22 Carol Kyle APRN, LIPSTICK MOLDER [address] [place] [address] Nurse Practitioner Advanced Practice Nurse 06/01/22 Aundrea Marvin APRN, PHYSICAL DAMAGE APPRAISER [address] [place] [address] Nurse Practitioner Advanced Practice Nurse 09/16/24 documented as of this encounter
--- OUTSIDE RECORDS SUMMARY | 2025-01-31 14:58 | XMS_ITS | Encounter Summary ---
Author Organization [facility] Address [address] [place] [address] Phone Care Team Providers Care Customer Service Receptionist Name Role Phone Ronit Rockwell MD Unavailable [phone] Randy Cruz MD Unavailable [phone] Jimena Davis MD Unavailable [phone] Liborio Downs MD Unavailable Manav Donohue MD Unavailable [phone] Kee Henao MD Primary Care Provider [phone] Delvis Campos MD Unavailable Leann Heath RN Unavailable Unavaila Heladio Velázquez DPM Unavailable Unavailable Richard Whiting MD Unavailable Mary Ann Figueredo SOAKER HIDES, LOADING AND UNLOADING SUPERVISOR Unavailable + [phone] Jami Zmimer SOAKER HIDES, LOADING AND UNLOADING SUPERVISOR Unavailable [phone] Carol Kyle SOAKER HIDES, EXECUTIVE SOUS CHEF Unavailable + [phone] Aundrea Marvin SOAKER HIDES, LOADING AND UNLOADING SUPERVISOR Unavailable Reason for Visit * Reason Comments Medication Refill Encounter Details Date Type Department Care Team (Late st Contact Info) Description 10/27/2023 Refill [facility] - Internal Medicine - [place] [address] [place] [address] Kee Henao MD [address] [place] [address] Medication Refill Social History Tobacco Use Types [...] Telephone Encounter - Calli Chisholm RN - 10/30/2023 9:30 AM CDT Medication failed the protocol, provider to review and approve the medication order if appropriate. Requested Prescriptions Pending Prescriptions Disp Refills rivaroxaban (Xarelto) 20 MG Tablet [Pharmacy Med Name: XARELTO 20MG TABLETS] 90 Tablet 0 Sig: TAKE 1 TABLET BY MOUTH DAILY WITH FOOD FOR ATRIAL FIBRILLATION Not Delegated - DOACs Protocol Failed - 10/27/2023 1:47 PM Failed - This refill cannot be delegated Failed - Visit with relevant provider in past 12 months or upcoming 90 days Recent Visits No visits were found meeting these conditions. Showing recent visits within past 365 days and meeting all other requirements Future Appointments No visits were found meeting these conditions. Showing future appointments within next 90 days and meeting all other requirements Passed - CBC on record in the past year WBC Date Value Ref Range Status 02/11/2023 8.73 4.00 - 12.00 10(3)/mcL Final WBC ESTERASE Date Value Ref Range Status 06/26/2019 Negative Negative Final RBC Date Value Ref Range Status 02/11/2023 4.07 (L) 4.40 - 5.80 10(6)/mcL Final HEMATOCRIT (HCT) Date Value Ref Range Status 02/11/2023 40.1 38.0 - 50.0 % Final HEMOGLOBIN (HGB) Date Value Ref Range Status 02/11/2023 13.2 13.0 - 16.5 g/dL Final MCV Date Value Ref Range Status 02/11/2023 98.5 (H) 82.0 - 96.0 fL Final MCH Date Value Ref Range Status 02/11/2023 32.4 (H) 26.0 - 32.0 pg Final MCHC Date Value Ref Range Status 02/11/2023 32.9 31.0 - 36.0 g/dL Final Passed - CMP on record in the past year SODIUM Date Value Ref Range Status 02/11/2023 139 136 - 144 mmol/L Final POTASSIUM Date Value Ref Range Status 02/11/2023 4.0 3.5 - 5.1 mmol/L Final CHLORIDE Date Value Ref Range Status 02/11/2023 103 100 - 110 mmol/L Final CO2, VENOUS Date Value Ref Range Status 02/11/2023 26 22 - 32 mmol/L Final ANION GAP Date Value Ref Range Status 02/11/2023 14.0 8.0 - 20.0 mmol/L Final GLUCOSE Date Value Ref Range Status 02/11/2023 114 (H) 70 - 99 mg/dL Final BUN Date Value Ref Range Status 02/11/2023 13 8 - 23 mg/dL Final CREATININE - POCT Date Value Ref Range Status 06/22/2022 0.9 0.6 - 1.3 mg/dL Final CREATININE, BLOOD Date Value Ref Range Status 02/11/2023 0.80 0.80 - 1.30 mg/dL Final BUN/CREATININE RATIO Date Value Ref Range Status 02/11/2023 16 12 - 20 ratio Final TOTAL PROTEIN Date Value Ref Range Status 02/10/2023 7.0 6.0 - 8.3 g/dL Final ALBUMIN Date Value Ref Range Status 02/10/2023 4.0 3.5 - 5.2 g/dL Final Comment: The colormetric methods used for the determination of Albumin may lead to falsely elevated test results in patients suffering from renal failure or insufficiency due to interference with other proteins. A/G RATIO Date Value Ref Range Status 02/10/2023 1.3 1.0 - 2.0 Final CALCIUM Date Value Ref Range Status 02/11/2023 8.8 (L) 8.9 - 10.3 mg/dL Final T BILI Date Value Ref Range Status 02/10/2023 0.4 <=1.2 mg/dL Final SGOT (AST) Date Value Ref Range Status 02/10/2023 19 <=40 U/L Final SGPT (ALT) Date Value Ref Range Status 02/10/2023 20 <=41 U/L Final ALKALINE PHOSPHATASE Date Value Ref Range Status 02/10/2023 109 40 - 130 U/L Final GFR, EST. NONAFRICAN Date Value Ref Range Status 02/11/2023 >60 >=60 Final GFR, EST. Date Value Ref Range Status 02/11/2023 >60 >=60 Final GFR, ESTIMATED Date Value Ref Range Status 02/11/2023 >60 >=60 Final Comment: Creatinine Clearance is the preferred criteria for selecting drug dose adjustments in renally impaired patients. The GFR is provided as additional pertinent clinical information. GFR is reported in mL/min/1.73 sq m. Calculation based on the Chronic Kidney Disease Epidemiology Collaboration (CKD- EPI) equation refitwithout adjustment for race. IS THE PATIENT REQUIRED TO BE FASTING? Date Value Ref Range Status 03/16/2022 No Final Passed - Creatinine and GFR on record in the past year CREATININE - POCT Date Value Ref Range Status 06/22/2022 0.9 0.6 - 1.3 mg/dL Final CREATININE, BLOOD Date Value Ref Range Status 02/11/2023 0.80 0.80 - 1.30 mg/dL Final GFR, ESTIMATED Date Value Ref Range Status 02/11/2023 >60 >=60 Final Comment: Creatinine Clearance is the preferred criteria for selecting drug dose adjustments in renally impaired patients. The GFR is provided as additional pertinent clinical information. GFR is reported in mL/min/1.73 sq m. Calculation based on the Chronic Kidney Disease Epidemiology Collaboration (CKD- EPI) equation refitwithout adjustment for race. GFR, EST. NONAFRICAN Date Value Ref Range Status 02/11/2023 >60 >=60 Final documented in this encounter Plan of Treatment Upcoming Encounters Date Type Department Care Team (Late st Contact Info) Description 04/14/2025 3:30 PM CDT Office Visit [facility] - Internal Medicine - [place] [address] [place] [address] Kee Henao MD [address] [place] [address] documented as of this encounter Goals Goal Patient Goal Type Associated Problems Recent Progress Patient-Stated? 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 Goal Reviewed with: patient Readiness to change: Ready to change Department associated with goal: [facility] Steps to [...] to change Department associated with goal: [facility] Steps to achieve goal: Patient counseled on triggers for relapse Patient counseled on healthy coping skills to help maintain sobriety Patient encouraged to attend AA or NA, linkage to Navigation for community resources Care Coordination Care Coordination On track(2020 2:12 PM CDT) No Carlie Ge LSW Note: Patient will demonstrate knowledge of community resources (learn about [facility] homemaker services and Medicare Counselors at [facility]) Anticipated Completion Date: In the next 3 months Patient's Preferred Goal: Standard Challenges/Barriers: None Readiness to Change: Thinking about making a change Notify Care Team if: You do not have one of your basic needs met (food, prison, utility). Short Term Goals: Community Care Program for Seniors in [place] can provide homemakers (in home care), emergency response buttons, and automatic medication dispensers. To apply for any of these services call [facility] at [phone]. For information on choosing a new Medicare plan or about your Medicare benefits you can call [email or web address] and ask to speak with Hiram Walters at [phone] or call the the [place] Senior Health Insurance Program at . Depression [...] Team if in need of crisis services [phone] or (ph#) WILLIAM GREY will place a referral to [facility] for them to call you to schedule a telehealth appointment. If you do not receive a call from them in the next week feel free to call them at [phone] to schedule an appointment. documented as of this encounter Visit Diagnoses Not on filedocumented in this encounter Additional Health Concerns Assessment Noted Time PHQ-9 Depression Total Score: 9 05/05/20 21 2:00 PM CDT documented as of this encounter Care Teams Customer Service Receptionist Relationship Specialty Start Date End Date Kee Henao MD [address] [place] [address] PCP - General Internal Medicine 12/01/21 Ronit Rockwell MD Consulting Physician Psychiatry 09/08/17 Randy Cruz MD [address] [place] [address] Consulting Physician Hematology 03/21/18 Jimena Davis MD [address] [place] [address] Consulting Physician Urology 03/25/19 Liborio Downs MD [address] [place] [phone] Consulting Physician Pulmonary Disease 03/25/19 Manav Donohue MD [address] [place] [phone] Consulting Physician Neurology 07/14/21 Delvis Campos MD [address] [place] [address] Ui Designer Cardiovascular Disease - Cardiology 01/07/22 07/24/24 Leann Brennan RN [place] Registered Nurse Cardiology 06/06/22 07/24/24 Heladio Blanco DPM Podiatry 11/24/21 Richard Whiting MD [address] [address] Consulting Physician Colon and Rectal Surgery 02/03/23 Mary Ann Figueredo, SOAKER HIDES, LOADING AND UNLOADING SUPERVISOR #[address] [address] Nurse Practitioner Cardiology 09/04/23 Jami Zimmer APRN, LOADING AND UNLOADING SUPERVISOR #[address] [address] Nurse Practitioner Advanced Practice Nurse 03/14/22 Carol Kyle APRN, EXECUTIVE SOUS CHEF [address] [place] [address] Nurse Practitioner Advanced Practice Nurse 06/01/22 Aundrea Marvin APRN, LOADING AND UNLOADING SUPERVISOR [address] [place] [address] Nurse Practitioner Advanced Practice Nurse 09/16/24 documented as of this encounter
--- OUTSIDE RECORDS SUMMARY | 2025-01-31 14:58 | XMS_ITS | Clinical Summary ---
Author Organization [facility] [employer] Address [address] [place] [address] Care Team Providers Care Hansard Reporter Name Role Phone Unavailable Primary Care Provider Unavailabl e Source Comments [facility] [employer],non-owned Affiliates and Associated Physician Practices is amultiple site organization consisting of ambulatory clinics and hospital sitesin [place], [place], [place] and [place]. This disclosure is being madepursuant to the Care Everywhere program and may not contain all information available regarding this patient. 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, not intractable 03/26/2014 Family History Medical History Relation Name Comments Diabetes Brother Cancer Father 2/2 Metholzmeom a Alzheimer's Disease Maternal Aunt CAD (Coronary Artery Disease) Maternal Grandmother Heart Disease Maternal Grandmother Thyroid Disease Mother Relation Name Status Comments Brother Father Maternal Aunt Maternal Grandmother Mother Social History Tobacco Use Types Packs/Day Years Used Date Smoking Tobacco: Former Smokeless Tobacco: Never Alcohol Use Standard Drinks/Week Comments Yes 10 (1 standard drink = 0.6 oz pu re alcohol) Sex and Gender Information Value Date Recorded Sex Assigned at Not on file 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 Gender Identity Not on file Sexual Orientation Not on file Plan of Treatment Health Maintenance Due Date Last Done Comments COLOGUARD (AGES 45-75) - COL ON CA SCREENING 1958 COLON MONITORING 1958 COLONOSCOPY - COLON CA SCREENING 1958 CT COLONOGRAPHY - COLON CA SCREENING 1958 Colorectal Cancer Screening 1958 FIT - COLON CA SCREENING 1958 FLEX SIG - COLON CA SCREENING 1958 LIPID TESTING 1958 HEPATITIS C SCREENING 09/02/1976 DTAP/TDAP/TD VACCINES (1 - Tdap) 1977 PNEUMOCOCCAL VACCINE 50+ (1 of 1 - PCV) 2008 ZOSTER VACCINE (1 of 2) 2008 AAA SCREENING 2023 COVID-19 VACCINE (1 - 2023-2 5 season) 2024 DEPRESSION SCREENING 08/21/2024 INFLUENZA VACCINE (Season Ended) 2025 Respiratory Syncytial Virus (RSV) Vaccine Pt: or over 60 yrs (1 - 1-dose 75+ series) 2033 HEPATITIS B VACCINE Aged Out No longe r eligible based on patient's age to complete this topic HIB VACCINE Aged Out No longer eligi ble based on patient's age to complete this topic HPV VACCINE Aged Out No longer eligi ble based on patient's age to complete this topic MENINGOCOCCAL (Group B) VACC INE SHARED DECISION-MAKING Aged Out No longer eligibl e based on patient's age to complete this topic MENINGOCOCCAL GROUPS A/C/Y/W VACCINE Aged Out No longer eligible b ased on patient's age to complete this topic Insurance MEDICARE MEDICAID - OUT OF [facility] MEDICARE MEDICAID - OUT OF STATE [employer] MEDICARE MEDICAID - OUT OF STATE [employer] MEDICARE MEDICAID - OUT OF STATE [employer] MEDICARE MEDICAID - OUT [facility] - OUT OF STATE
--- OUTSIDE RECORDS SUMMARY | 2025-01-31 14:58 | XMS_ITS | Encounter Summary ---
Author Organization [facility] Address [address] [place] [address] Phone Care Team Providers Care Deputy Coroner Investigator Name Role Phone Yordan Feliz MD Primary Care Provider [phone] Ronit Rockwell MD Unavailable [phone] Randy Cruz MD Unavailable [phone] Jimena Davis MD Unavailable [phone] Liborio Downs MD Unavailable Carlie Ge Unavailable Unavailab Manav Alicia MD Unavailable [phone] Kee Henao MD Primary Care Provider [phone] Delvis Campos MD Unavailable Leann Heath RN Unavailable UnavailHeladio Portillo DPM Unavailable Unavailable Richard Whiting MD Unavailable Mary Ann Figueredo AMMONIUM HYDROXIDE OPERATOR, FLUTE GRINDER Unavailable + [phone] Jami Zimmer AMMONIUM HYDROXIDE OPERATOR, FLUTE GRINDER Unavailable [phone] Carol Kyle AMMONIUM HYDROXIDE OPERATOR, RESEARCH ANIMAL FACILITY SUPERVISOR Unavailable + [phone] Aundrea Marvin AMMONIUM HYDROXIDE OPERATOR, FLUTE GRINDER Unavailable Reason for Visit * Reason Onset Date Comments Medication Refill Medication Refill 01/07/2021 Encounter Details Date Type Department Care Team (Late Contact Info) Description 01/03/2021 Refill [facility] PULMONOLOGY #[address] [place] [id number] Liborio Downs MD [address]2 [place] [address] Medication Refill; Medication Refill Social History Tobacco Use Types Packs/Day Years Used Date Smoking Tobacco: Every Day Cigarettes 0.3 45 Started: 980; Last attempted to quit: 10/08/2019 E-Vapor with Nicotine Smokeless Tobacco: Never Comments:about 5 a day Alcohol Use Standard Drinks/Week Comments Yes 4 (1 standard drink = 0.6 oz pur e alcohol) 4 drinks a day Sexually Active Control Partners Comments [...] encounter Miscellaneous Notes * Telephone Encounter - Sharonda Sneed RN - 01/04/2021 12:10 PM CDT D/C by PCP documented in this encounter Plan of Treatment Upcoming Encounters Date Type Department Care Team (Late Contact Info) Description 04/14/2025 3:30 PM CDT Office Visit [facility] - Internal Medicine - [place] [address] [place] [address] Kee Henao MD [address] [place] [address] documented as of this encounter Visit Diagnoses Not on filedocumented in this encounter Additional Health Concerns Infection Onset Date Last Indicated Resolved Time COVID - 19 09/08/2021 09/09/2021 09/29/2021 12:1 6 AM COMMERCIAL LOAN UNDERWRITER Assessment Noted Time PHQ-9 Depression Total Score: 0 06/29/20 17 4:00 PM COMMERCIAL LOAN UNDERWRITER documented as of this encounter Care Teams Deputy Coroner Investigator Relationship Specialty Start Date End Date Yordan Feliz MD [address] [place] [address] PCP - General Internal Medicine 09/08/17 11/30/21 Kee Henao MD [address] [place] [address] PCP - General Internal Medicine 12/01/21 Ronit Rockwell MD [address] [place] [address] Consulting Physician Psychiatry 09/08/17 Randy Cruz MD [address] [place] [address] Consulting Physician Hematology 03/21/18 Jimena Davis MD [address] [place] [address] Consulting Physician Urology 03/25/19 Liborio Downs MD [address] [place] [address] Consulting Physician Pulmonary Disease 03/25/19 Carlie Ge LSW [place] Timber Buyer 03/12/21 04/13/21 Manav Donohue MD [address] [place] [address] Consulting Physician Neurology 07/14/21 Delvis Campos MD [address] [place] [address] Marine Equipment Preservation Inspector Cardiovascular Disease - Cardiology 01/07/22 07/24/24 Leann Brennan, [place] Registered Nurse Cardiology 06/06/22 07/24/24 Heladio Blanco, DPM Podiatry 11/24/21 Richard Whiting MD [address]2 [facility] [address] [place] [address] Consulting Physician Colon and Rectal Surgery 02/03/23 Mary Ann Figueredo APRN, FLUTE GRINDER #2 [facility] [address] [place] [address] Nurse Practitioner Cardiology 09/04/23 Jami Zimmer, AMMONIUM HYDROXIDE OPERATOR, FLUTE GRINDER [address] [facility] [address] [place] [address] Nurse Practitioner Advanced Practice Nurse 03/14/22 Carol Kyle, AMMONIUM HYDROXIDE OPERATOR, RESEARCH ANIMAL FACILITY SUPERVISOR [address] [place] [address] Nurse Practitioner Advanced Practice Nurse 06/01/22 Aundrea Marvin AMMONIUM HYDROXIDE OPERATOR, FLUTE GRINDER [address] [place] [address] Nurse Practitioner Advanced Practice Nurse 09/16/24 documented as of this encounter
--- OUTSIDE RECORDS SUMMARY | 2025-01-31 14:58 | XMS_ITS | Encounter Summary ---
Author Organization [facility] Address [address] [place] [address] Phone Care Team Providers Care Wire Insulator Name Role Phone Ronit Rockwell MD Unavailable [phone] Randy Cruz MD Unavailable [phone] Jimena Davis MD Unavailable [phone] Liborio Downs MD Unavailable Manav Donohue MD Unavailable [phone] Kee Henao MD Primary Care Provider [phone] Delvis Campos MD Unavailable Leann Heath RN Unavailable Unavaila Heladio Velázquez DPM Unavailable Unavailable Rihcard Whiting MD Unavailable Mary Ann Figueredo INFORMATION CLERK CASHIER, PRINCIPAL TECHNICAL ARCHITECT Unavailable + [phone] Jami Zmimer INFORMATION CLERK CASHIER, PRINCIPAL TECHNICAL ARCHITECT Unavailable [phone] Carol Kyle INFORMATION CLERK CASHIER, SHEET SORTER Unavailable + [phone] Aundrea Marvin INFORMATION CLERK CASHIER, PRINCIPAL TECHNICAL ARCHITECT Unavailable Reason for Visit * Reason Comments Medication Refill Encounter Details Date Type Department Care Team (Late st Contact Info) Description 10/05/2023 [facility]ill [facility] - [place] [address] [place] [address] Kee Henao MD [address] [place] [address] Medication Refill Social History Tobacco Use Types [...] Telephone Encounter - Calli Chisholm RN - 10/05/2023 8:17 AM CST Medication failed the protocol, provider to review and approve the medication order if appropriate. Requested Prescriptions Pending Prescriptions Disp Refills Xarelto 20 MG Tablet [Pharmacy Med Name: XARELTO 20MG TABLETS] 90 Tablet 0 Sig: TAKE 1 TABLET BY MOUTH DAILY WITH FOOD FOR ATRIAL FIBRILLATION Not Delegated - DOACs Protocol Failed - 10/05/2023 6:01 AM Failed - This refill cannot be [...] Ref Range Status 02/11/2023 >60 >=60 Final NATOR HAND documented in this encounter Plan of Treatment Upcoming Encounters Date Type Department Care Team (Late st Contact Info) Description 04/14/2025 3:30 PM CDT Office Visit [facility] - Internal Medicine - [place] [address] [place] [address] Kee Henao MD [address] [place] [address] documented as of this encounter Goals Goal Patient Goal Type Associated Problems Recent Progress Patient-Stated? 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 Goal Reviewed with: patient Readiness to change: Ready to change Department associated with goal: [facility] Steps to [...] Ready to change Department associated with goal: [facility] Steps to achieve goal: Patient counseled on triggers for relapse Patient counseled on healthy coping skills to help maintain sobriety Patient encouraged to attend AA or NA, linkage to Navigation for community resources Care Coordination Care Coordination On track(2020 2:12 PM CDT) No Carlie Ge LSW Note: Patient will demonstrate knowledge of community resources (learn about [facility] homemaker services and Medicare Counselors at [facility]) Anticipated Completion Date: In the next 3 months Patient's Preferred Goal: Standard Challenges/Barriers: None Readiness to Change: Thinking about making a change Notify Care Team if: You do not have one of your basic needs met (food, halfway, utility). Short Term Goals: Community Care Program for Seniors in [place] can provide homemakers (in home care), emergency response buttons, and automatic medication dispensers. To apply for any of these services call [facility] at [phone]. For information on choosing a new Medicare plan or about your Medicare benefits you can call [employer] and ask to speak with Hiram Walters at [phone] ext [phone] or call the the [place] Senior Health Insurance Program at . Depression [...] Team if in need of crisis services [phone] or (ph#) [facility] will place a referral to [facility] for them to call you to schedule a telehealth appointment. If you do not receive a call from them in the next week feel free to call them at [phone] to schedule an appointment. documented as of this encounter Visit Diagnoses Not on filedocumented in this encounter Additional Health Concerns Assessment Noted Time PHQ-9 Depression Total Score: 9 05/05/20 21 2:00 PM CDT documented as of this encounter Care Teams Wire Insulator Relationship Specialty Start Date End Date Kee Henao MD [address] [place] [address] PCP - General Internal Medicine 12/01/21 Ronit Rockwell MD Consulting Physician Psychiatry 09/08/17 Randy Cruz MD [address] [place] [address] Consulting Physician Hematology 03/21/18 Jimena Davis MD [address] [place] [id number] Consulting Physician Urology 03/25/19 Liborio Downs MD [address] [place] [id number] Consulting Physician Pulmonary Disease 03/25/19 Manav Donohue MD [address] [place] [address] Consulting Physician Neurology 07/14/21 Delvis Campos MD [address] [place] [address] National Sales Trainer Cardiovascular Disease - Cardiology 01/07/22 07/24/24 Leann Brenann RN [place] Registered Nurse Cardiology 06/06/22 07/24/24 Heladio Blanco, DPM Podiatry 11/24/21 Richard Whiting MD #[address] [address] Consulting Physician Colon and Rectal Surgery 02/03/23 Mary Ann Figueredo, INFORMATION CLERK CASHIER, PRINCIPAL TECHNICAL ARCHITECT #[address] [address] Nurse Practitioner Cardiology 09/04/23 Jami Zimmer MARIN, PRINCIPAL TECHNICAL ARCHITECT #[address] [address] Nurse Practitioner Advanced Practice Nurse 03/14/22 Carol Kyle APRN, SHEET SORTER [address] [place] [address] Nurse Practitioner Advanced Practice Nurse 06/01/22 Aundrea Marvin APRN, PRINCIPAL TECHNICAL ARCHITECT [address] [place] [address] Nurse Practitioner Advanced Practice Nurse 09/16/24 documented as of this encounter
--- OUTSIDE RECORDS SUMMARY | 2025-01-31 14:58 | XMS_ITS | Encounter Summary ---
Author Organization [facility] Address [address] [place] [address] Phone Care Team Providers Care Home Staging Specialist Name Role Phone Ronit Rockwell MD Unavailable [phone] Randy Cruz MD Unavailable [phone] Jimena Davis MD Unavailable [phone] Liborio Downs MD Unavailable Manav Donohue MD Unavailable [phone] Kee Henao MD Primary Care Provider [phone] Delvis Campos MD Unavailable Leann Heath RN Unavailable Unavaila Heladio Velázquez DPM Unavailable Unavailable Richard Whiting MD Unavailable Mary Ann Figueredo CATERING STAFF MEMBER, LINUX KERNEL ENGINEER Unavailable + [phone] Jami Zimmer CATERING STAFF MEMBER, LINUX KERNEL ENGINEER Unavailable [phone] Carol Kyle CATERING STAFF MEMBER, SNUFF DRIER Unavailable + [phone] Aundrea Marvin CATERING STAFF MEMBER, LINUX KERNEL ENGINEER Unavailable Reason for Visit * Reason Comments Medication Refill Encounter Details Date Type Department Care Team (Late st Contact Info) Description 04/29/2023 [facility]ill [facility] - [place] [address] [place] [address] Kathya Brink, PAC [address] [facility] [place] [address] Medication Refill Social History Tobacco Use Types [...] Telephone Encounter - Calli Chisholm RN - 05/01/2023 8:13 AM CDT Medication failed the protocol, provider to review and approve the medication order if appropriate. Requested Prescriptions Pending Prescriptions Disp Refills Xarelto 20 MG Tablet [Pharmacy Med Name: XARELTO 20MG TABLETS] 90 Tablet 0 Sig: TAKE 1 TABLET BY MOUTH DAILY WITH FOOD FOR ATRIAL FIBRILLATION Not Delegated - DOACs Protocol Failed - 04/29/2023 5:51 AM Failed - This refill cannot be delegated Passed - CBC on record in the [...] 31.0 - 36.0 g/dL Final Passed - Visit with relevant provider in past 12 months or upcoming 90 days Recent Visits Date Type Provider Dept 09/23/22 Office Visit Kathya Brink PAC [facility] [place] 06/29/22 Office Visit [facility] Showing recent visits within past 365 days and meeting all other requirements Future Appointments No visits were found meeting these conditions. Showing future appointments within next 90 days and meeting all other requirements Passed - CMP on record in the [...] Description 04/14/2025 3:30 PM CDT Office Visit [facility] - Internal Medicine - [place] [address] [place] [address] Kee Henao MD [address] [place] [address] documented as of this encounter Goals Goal Patient Goal Type Associated Problems Recent Progress Patient-Stated? 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 Goal Reviewed with: patient Readiness to change: Ready to change Department associated with goal: [facility] Steps to [...] Ready to change Department associated with goal: [facility] Steps to achieve goal: Patient counseled on triggers for relapse Patient counseled on healthy coping skills to help maintain sobriety Patient encouraged to attend AA or NA, linkage to Navigation for community resources Care Coordination Care Coordination On track(2020 2:12 PM CDT) No Carlie Ge LSW Note: Patient will demonstrate knowledge of community resources (learn about [facility] homemaker services and Medicare Counselors at [facility]) Anticipated Completion Date: In the next 3 months Patient's Preferred Goal: Standard Challenges/Barriers: None Readiness to Change: Thinking about making a change Notify Care Team if: You do not have one of your basic needs met (food, retirement, utility). Short Term Goals: Community Care Program for Seniors in [place] can provide homemakers (in home care), emergency response buttons, and automatic medication dispensers. To apply for any of these services call [facility] at [phone]. For information on choosing a new Medicare plan or about your Medicare benefits you can call [facility] and ask to speak with Hiram Walters at [phone] or call the the [place] [employer] Health Insurance Program at . Depression Depression [...] Team if in need of crisis services [phone] or (ph#) [facility] will place a referral to [facility] for them to call you to schedule a telehealth appointment. If you do not receive a call from them in the next week feel free to call them at [phone] to schedule an appointment. documented as of this encounter Visit Diagnoses Not on filedocumented in this encounter Additional Health Concerns Assessment Noted Time PHQ-9 Depression Total Score: 9 05/05/20 21 2:00 PM CDT documented as of this encounter Care Teams Home Staging Specialist Relationship Specialty Start Date End Date Kee [place] [place] [address] [address] PCP - General Internal Medicine 12/01/21 Ronit Rockwell MD Consulting Physician Psychiatry 09/08/17 Randy Cruz MD [address] [place] [address] Consulting Physician Hematology 03/21/18 Jimena Davis MD [address] [place] [address] Consulting Physician Urology 03/25/19 Liborio Downs MD [address] [place] [address] Consulting Physician Pulmonary Disease 03/25/19 Manav Dnoohue MD [address] [place] [address] Consulting Physician Neurology 07/14/21 Delvis Campos MD [address] [place] [address] Airport Ramp Attendant Cardiovascular Disease - Cardiology 01/07/22 07/24/24 Leann Brennan, [place] Registered Nurse Cardiology 06/06/22 07/24/24 Heladio Blanco DPM Podiatry 11/24/21 Richard Whiting MD #[address] [address] Consulting Physician Colon and Rectal Surgery 02/03/23 Mary Ann Figueredo, CATERING STAFF MEMBER, LINUX KERNEL ENGINEER #2 [facility] [address] [place] [address] Nurse Practitioner Cardiology 09/04/23 Jami Zimmer APRN, LINUX KERNEL ENGINEER #2 [facility] [address] [place] [address] Nurse Practitioner Advanced Practice Nurse 03/14/22 Carol Kyle APRN, SNUFF DRIER [address] [place] [address] Nurse Practitioner Advanced Practice Nurse 06/01/22 Aundrea Marvin APRN, LINUX KERNEL ENGINEER #[address] [place] [address] Nurse Practitioner Advanced Practice Nurse 09/16/24 documented as of this encounter
--- OUTSIDE RECORDS SUMMARY | 2025-01-31 14:58 | XMS_ITS | Encounter Summary ---
Author Organization [facility] Address [address] [place] [address] Phone Care Team Providers Care Electronic Musical Instrument Repairer Name Role Phone Ronit Rockwell MD Unavailable [phone] Randy Cruz MD Unavailable [phone] Jimena Davis MD Unavailable [phone] Liborio Downs MD Unavailable Manav Donohue MD Unavailable [phone] Kee Henao MD Primary Care Provider [phone] Heladio Blanco DPM Unavailable Unavailable Richard Whiting MD Unavailable Mary Ann Figueredo CLOSING AGENT, CHILD WELFARE CASEWORKER Unavailable + [phone] Jami Zimmer CLOSING AGENT, CHILD WELFARE CASEWORKER Unavailable [phone] Carol Kyle CLOSING AGENT, PANEL MONITOR Unavailable + [phone] Aundrea Marvin CLOSING AGENT, CHILD WELFARE CASEWORKER Unavailable Encounter Details Date Type Department Care Team (Late st Contact Info) Description 01/28/2025 Results Follow-Up [facility] - Pulmonology & Sleep Medicine - [place] [address] [place] [address] Liborio Downs MD [address] [place] [address] XR CHEST 2 VIEWS Social History Tobacco Use Types Packs/Day Years Used Date Smoking Tobacco: Every Day Cigarettes 0.5 44.6 Started: 07/13/1980 Smokeless Tobacco: Former Chew Alcohol Use Standard Drinks/Week Comments Yes 33 [...] 04/14/2025 3:30 PM CDT Office Visit [facility] - Internal Medicine - [employer] [address] [place] [address] Kee Henao MD [address] [place] [address] documented as of this encounter Goals Goal Patient Goal Type Associated Problems Recent Progress Patient-Stated? 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 Goal Reviewed with: patient Readiness to change: Ready to change Department associated with goal: [facility] Steps to achieve [...] to change Department associated with goal: [facility] Steps to achieve goal: Patient counseled on triggers for relapse Patient counseled on healthy coping skills to help maintain sobriety Patient encouraged to attend AA or NA, linkage to Navigation for community resources Care Coordination Care Coordination On track(2020 2:12 PM CDT) Carlie Grijalva LSW Note: Patient will demonstrate knowledge of community resources (learn about [facility] homemaker services and Medicare Counselors at [facility]) Anticipated Completion Date: In the next 3 months Patient's Preferred Goal: Standard Challenges/Barriers: None Readiness to Change: Thinking about making a change Notify Care Team if: You do not have one of your basic needs met (food, jail, utility). Short Term Goals: Community Care Program for Seniors in [place] can provide homemakers (in home care), emergency response buttons, and automatic medication dispensers. To apply for any of these services call [facility] at [phone]. For information on choosing a new Medicare plan or about your Medicare benefits you can call [facility] and ask to speak with Hiram Walters at [phone] or call the the [place] Senior Health Insurance Program at . Depression [...] Team if in need of crisis services [phone] or (ph#) [facility] will place a referral to [facility] for them to call you to schedule a telehealth appointment. If you do not receive a call from them in the next week feel free to call them at [phone] to schedule an appointment. documented as of this encounter Visit Diagnoses Not on filedocumented in this encounter Additional Health Concerns Assessment Noted Time PHQ-9 Depression Total Score: 9 05/05/20 21 2:00 PM CDT documented as of this encounter Care Teams Electronic Musical Instrument Repairer Relationship Specialty Start Date End Date Kee Henao MD [address] [place] [address] PCP - General Internal Medicine 12/01/21 Ronit Rockwell MD Consulting Physician Psychiatry 09/08/17 Randy Cruz MD [address] [place] [address] Consulting Physician Hematology 03/21/18 Jimena Davis MD [address] [place] [address] Consulting Physician Urology 03/25/19 Liborio Downs MD #[address] [place] [address] Consulting Physician Pulmonary Disease 03/25/19 Manav Donohue MD #[address] [place] [address] Consulting Physician Neurology 07/14/21 Heladio Blanco DPM Podiatry 11/24/21 Richard Whiting MD #2 [facility] [address] [place] [address] Consulting Physician Colon and Rectal Surgery 02/03/23 Mary Ann Figueredo CLOSING AGENT, CHILD WELFARE CASEWORKER #2 [facility] [facility] [address] [place] [address] Nurse Practitioner Cardiology 09/04/23 Jami Zimmer CLOSING AGENT, CHILD WELFARE CASEWORKER #2 [facility] [address] [place] [address] Nurse Practitioner Advanced Practice Nurse 03/14/22 Carol Kyle APRN, PANEL MONITOR [address] [place] [address] Nurse Practitioner Advanced Practice Nurse 06/01/22 Aundrea Marvin APRN, CHILD WELFARE CASEWORKER [address] [place] [address] Nurse Practitioner Advanced Practice Nurse 09/16/24 documented as of this encounter
--- OUTSIDE RECORDS SUMMARY | 2025-01-31 14:58 | XMS_ITS | Encounter Summary ---
Author Organization [facility] Address [address] [place] [address] Phone Care Team Providers Care Trimmer Operator Name Role Phone Ronit Rockwell MD Unavailable [phone] Randy Cruz MD Unavailable [phone] Jimena Davis MD Unavailable [phone] Liborio Downs MD Unavailable Manav Donohue MD Unavailable [phone] Kee Henao MD Primary Care Provider [phone] Delvis Campos MD Unavailable Leann Heath RN Unavailable Unavaila Heladio Velázquez DPM Unavailable Unavailable Richard Whiting MD Unavailable Mary Ann Figueredo TELEPHONE COIN BOX COLLECTOR, ASE MASTER MECHANIC Unavailable + [phone] Jami Zimmer TELEPHONE COIN BOX COLLECTOR, ASE MASTER MECHANIC Unavailable [phone] Carol Kyle TELEPHONE COIN BOX COLLECTOR, INTELLIGENCE OFFICER Unavailable + [phone] Aundrea Marvin TELEPHONE COIN BOX COLLECTOR, ASE MASTER MECHANIC Unavailable Reason for Visit * Reason Comments Medication Refill Encounter Details Date Type Department Care Team (Late st Contact Info) Description 02/12/2023 [facility]ill [facility] - Internal Medicine - [place] [address] [place] [address] Kee Henao MD [address] [place] [address] Medication Refill Social History Tobacco Use Types [...] suspected to have Coronavirus/COVID-19? No / Unsure 02/10/2023 10:48 AM CDT documented as of this encounter Miscellaneous Notes * Telephone Encounter - Lis Miller RN - 02/13/2023 9:44 AM CDT Name from pharmacy: AMITRIPTYLINE 25MG TABLETS Will file in chart as: amitriptyline (ELAVIL) 25 MG Tablet The original prescription was discontinued on 02/10/2023 by Dino Hatfield MD Medication failed the protocol, provider to review and approve the medication order if appropriate. Requested Prescriptions Pending Prescriptions Disp Refills Xarelto 20 MG Tablet [Pharmacy Med Name: XARELTO 20MG TABLETS] 90 Tablet 0 Sig: TAKE 1 TABLET BY MOUTH DAILY WITH FOOD FOR ATRIAL FIBRILLATION Not Delegated - DOACs Protocol Failed - 02/12/2023 3:24 PM Failed - This refill cannot be [...] Dept 09/23/22 [facility] [place] [facility]/22 Office Visit Kee Henao MD [facility] [place] 04/27/22 Office Visit Kee Henao MD [facility] [place] 03/23/22 Office Visit Kee Henao MD [facility] [place] Showing recent visits within past 365 days [...] Ref Range Status 02/11/2023 >60 >=60 Final Refused Prescriptions Disp Refills amitriptyline (ELAVIL) 25 MG Tablet [Pharmacy Med Name: AMITRIPTYLINE 25MG TABLETS] 30 Tablet 0 Sig: TAKE 1 TABLET BY MOUTH EVERY NIGHT Not Delegated - Tricyclic Agents Protocol Failed - 02/12/2023 3:24 PM Failed - This refill cannot be delegated Failed - Active on medication list Passed - Visit with relevant provider in past 12 months or upcoming 90 days Recent Visits Date Type Provider Dept 09/23/22 [facility]/27/22 Office Visit Kee Henao MD [facility] 03/23/22 Office Visit Kee Henao MD [facility] Showing recent visits within past 365 days and meeting all other requirements Future Appointments No visits were found meeting these conditions. Showing future appointments within next 90 days and meeting all other requirements * Telephone Encounter - Lis Miller RN - 02/13/2023 9:44 AM CDT Name from pharmacy: AMITRIPTYLINE 25MG TABLETS Will file in chart as: amitriptyline (ELAVIL) 25 MG Tablet The original prescription was discontinued on 02/10/2023 by Dino Hatfield MD documented in this encounter Plan of Treatment Upcoming Encounters Date Type Department Care Team (Late st Contact Info) Description 04/14/2025 3:30 PM CDT Office Visit [facility] Internal Medicine [facility] [address] [place] [phone] Kee Henao MD [address] [address] documented as of this encounter Goals Goal Patient Goal Type Associated Problems Recent Progress Patient-Stated? 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 Goal Reviewed with: patient Readiness to change: Ready to change Department associated with goal: [facility] Steps to achieve [...] Ready to change Department associated with goal: [facility] Steps to achieve goal: Patient counseled on triggers for relapse Patient counseled on healthy coping skills to help maintain sobriety Patient encouraged to attend AA or NA, linkage to Navigation for community resources Care Coordination Care Coordination On track(2020 2:12 PM CDT) No Carlie Ge LSW Note: Patient will demonstrate knowledge of community resources (learn about [facility] homemaker services and Medicare Counselors at [facility]) Anticipated Completion Date: In the next 3 months Patient's Preferred Goal: Standard Challenges/Barriers: None Readiness to Change: Thinking about making a change Notify Care Team if: You do not have one of your basic needs met (food, alf, utility). Short Term Goals: Community Care Program for Seniors in [place] can provide homemakers (in home care), emergency response buttons, and automatic medication dispensers. To apply for any of these services call [facility] at [phone]. For information on choosing a new Medicare plan or about your Medicare benefits you can call [facility] and ask to speak with Hiram Walters at [phone] or call the the [place] [employer] Insurance Program at . Depression Depression [...] Team if in need of crisis services [phone] or (ph#) WILLIAM GREY will place a referral to [facility] for them to call you to schedule a telehealth appointment. If you do not receive a call from them in the next week feel free to call them at [phone] to schedule an appointment. documented as of this encounter Visit Diagnoses Not on filedocumented in this encounter Additional Health Concerns Assessment Noted Time PHQ-9 Depression Total Score: 9 05/05/20 21 2:00 PM CDT documented as of this encounter Care Teams Trimmer Operator Relationship Specialty Start Date End Date Kee Henao MD [address] [place] [address] PCP - General Internal Medicine 12/01/21 Ronit Rockwell MD Consulting Physician Psychiatry 09/08/17 Randy Cruz MD [address] [place] [address] Consulting Physician Hematology 03/21/18 Jimena Davis MD [address] [place], [place] [id number] Consulting Physician Urology 03/25/19 Liborio Downs MD [address] [place] [address] Consulting Physician Pulmonary Disease 03/25/19 Manav Donohue MD [address] [place] [address] Consulting Physician Neurology 07/14/21 Delvis Campos MD [address] [place] [address] Silk Screen Cutter Cardiovascular Disease - Cardiology 01/07/22 07/24/24 Leann Brennan, [place] Registered Nurse Cardiology 06/06/22 07/24/24 Heladio Blanco, DPM Podiatry 11/24/21 Richard Whiting MD [address] [address] Consulting Physician Colon and Rectal Surgery 02/03/23 Mary Ann Figueredo, TELEPHONE COIN BOX COLLECTOR, ASE MASTER MECHANIC #[address] [address] Nurse Practitioner Cardiology 09/04/23 Jami Zimmer APRN, ASE MASTER MECHANIC [address] [address] Nurse Practitioner Advanced Practice Nurse 03/14/22 Carol Kyle APRN, INTELLIGENCE OFFICER [address] [place] [address] Nurse Practitioner Advanced Practice Nurse 06/01/22 Aundrea Marvin APRN, ASE MASTER MECHANIC [address] [place] [address] Nurse Practitioner Advanced Practice Nurse 09/16/24 documented as of this encounter
--- OUTSIDE RECORDS SUMMARY | 2025-01-31 14:58 | XMS_ITS | Encounter Summary ---
Author Organization [facility] Address [address] [place] [address] Phone Care Team Providers Care Catheter Finisher And Inspector Name Role Phone Yordan Feliz MD Primary Care Provider [phone] Ronit Rockwell MD Unavailable [phone] Randy Cruz MD Unavailable [phone] Jimena Davis MD Unavailable Liborio Downs MD Unavailable Carlie Ge Unavailable Unavailab Manav Alicia MD Unavailable [phone] Kee Henao MD Primary Care Provider [phone] Delvis Campos MD Unavailable Leann Heath RN Unavailable Unavaila Heladio Velázquez DPM Unavailable Unavailable Richard Whiting MD Unavailable Mary Ann Figueredo SITE SURVEYOR, HEAD CHARRER Unavailable + [phone] Jami Zimmer SITE SURVEYOR, HEAD CHARRER Unavailable +[phone] Carol Kyle SITE SURVEYOR, CODING EDUCATOR Unavailable + [phone] Aundrea Marvin SITE SURVEYOR, HEAD CHARRER Unavailable Reason for Visit * Reason Comments Medication Refill Encounter Details Date Type Department Care Team (Late Contact Info) Description 02/13/2021 Refill [facility] - [facility] Care - [place] [address] [place] [phone] Yordan Feliz MD [address] [place] [address] Medication Refill Social History Tobacco Use Types [...] Description 04/14/2025 3:30 PM CDT Office Visit [facility] - Internal Medicine - [place] [address] [place] [address] Kee Henao MD [address] [place] [address] documented as of this encounter Visit Diagnoses Not on filedocumented in this encounter Additional Health Concerns Infection Onset Date Last Indicated Resolved Time COVID - 19 09/08/2021 09/09/2021 09/29/2021 12:1 6 AM ASSISTANT BUSINESS MANAGER Assessment Noted Time PHQ-9 Depression Total Score: 0 06/29/20 17 4:00 PM ASSISTANT BUSINESS MANAGER documented as of this encounter Care Teams Catheter Finisher And Inspector Relationship Specialty Start Date End Date Yordan Feliz MD [address] [place] [address] PCP - General Internal Medicine 09/08/17 11/30/21 Kee Henao MD [address] [place] [address] PCP - General Internal Medicine 12/01/21 Ronit Rockwell MD [address] [place] [address] Consulting Physician Psychiatry 09/08/17 Randy Cruz MD [address] [place] [address] Consulting Physician Hematology 03/21/18 Jimena Davis MD [address] [place] [address] Consulting Physician Urology 03/25/19 Liborio Downs MD [address] [place] [address] Consulting Physician Pulmonary Disease 03/25/19 Carlie Ge LSW [place] Spike Maker 03/12/21 04/13/21 Manav Donohue MD [address] [place] [address] Consulting Physician Neurology 07/14/21 Delvis Campos MD [address] [place] [address] Brick Chimney Supervisor Cardiovascular Disease - Cardiology 01/07/22 07/24/24 Leann Brennan, [place] Registered Nurse Cardiology 06/06/22 07/24/24 Heladio Blanco DPM Podiatry 11/24/21 Richard Whiting MD [address] [facility] [address] [place] [address] Consulting Physician Colon and Rectal Surgery 02/03/23 Mary Ann Figueredo APRN, HEAD CHARRER [address]2 [facility] [address] [place] [address] Nurse Practitioner Cardiology 09/04/23 Jami Zimmer APRN, HEAD CHARRER [address] [facility] [address] [place] [address] Nurse Practitioner Advanced Practice Nurse 03/14/22 Carol Kyle APRN, CODING EDUCATOR [address] [place] [address] Nurse Practitioner Advanced Practice Nurse 06/01/22 Aundrea Marvin APRN, HEAD CHARRER [address] [place] [address] Nurse Practitioner Advanced Practice Nurse 09/16/24 documented as of this encounter
--- OUTSIDE RECORDS SUMMARY | 2025-01-31 14:58 | XMS_ITS | Encounter Summary ---
Author Organization [facility] Address [address] [place] [address] Phone Care Team Providers Care Geophysics Scientist Name Role Phone Yordan Feliz MD Primary Care Provider [phone] Ronit Rockwell MD Unavailable [phone] Randy Cruz MD Unavailable [phone] Jimena Davis MD Unavailable Liborio Downs MD Unavailable Carlie Ge Unavailable Unavailab Manav Alicia MD Unavailable [phone] Kee Henao MD Primary Care Provider [phone] Delvis Campos MD Unavailable Leann Heath RN Unavailable Unavaila Heladio Velázquez DPM Unavailable Unavailable Richard Whiting MD Unavailable Mary Ann Figueredo MAP MOUNTER, ORIENTAL RUG STRETCHER Unavailable + [phone] Jami Zimmer MAP MOUNTER, ORIENTAL RUG STRETCHER Unavailable [phone] Carol Kyle MAP MOUNTER, BACK FACER Unavailable + [phone] Aundrea Marvin MAP MOUNTER, ORIENTAL RUG STRETCHER Unavailable Reason for Visit * Reason Comments Medication Refill Encounter Details Date Type Department Care Team (Late st Contact Info) Description 10/02/2020 Refill [facility] - Primary Care - [place] [address] [place] [phone] Yordan Feliz MD [address] [place] [address] Medication Refill Social History Tobacco Use Types [...] have Coronavirus / COVID-19? No / Unsure 09/09/2020 12:33 PM CLINICAL DIETITIAN documented as of this encounter Miscellaneous Notes * Telephone Encounter - Marylou Ponce RN - 10/02/2020 2:59 PM CLINICAL DIETITIAN Medication failed the protocol, provider to review and approve the medication order if appropriate. Requested Prescriptions Pending Prescriptions Disp Refills propranolol (INDERAL) 20 MG Tablet [Pharmacy Med Name: PROPRANOLOL 20MG TABLETS] 270 Tablet Sig: TAKE 1 TABLET BY MOUTH THREE TIMES DAILY Cardiovascular: Beta Blockers Failed - 10/02/2020 2:00 PM Failed - Last BP in normal range BP Readings from Last 1 Encounters: 04/14/20 (!) 125/98 Passed - Valid encounter within last 12 months Past Office Visits Recent Outpatient Visits 3 weeks ago Preventative health care (Adult) [facility] - Family Medicine - [facility] Katy King APN, ORIENTAL RUG STRETCHER 9 months ago Projectile vomiting with nausea [facility] - Yordan De Leon MD 11 months ago URI, acute [facility] - Yordan De Leon MD 12 months ago Atrial fibrillation with RVR (HCC) [facility] - Yordan De Leon MD 1 year ago Bipolar 1 disorder ([facility]) [facility] - Yordan De Leon MD Upcoming Appointments Future Appointments In 1 month Liborio Downs MD [facility] In 2 months Manav Donohue MD [facility] Neurology [facility] CLINICAL PHARMACY MANAGER - Recent and Past Visits Recent Visits Date Type Provider Dept 09/09/20 Telemedicine Katy King APN, ORIENTAL RUG STRETCHER [facility] 01/01/20 Office Visit Yordan Feliz MD [facility] 11/06/19 Office Visit Yordan Feliz MD [facility] 10/07/19 Office Visit Yordan Feliz MD [facility] Showing recent visits within past 460 days with a meds authorizing provider and meeting all other requirements Future Appointments No visits were found meeting these conditions. Showing future appointments within next 90 days with a meds authorizing provider and meeting all other requirements ICAL DIETITIAN documented in this encounter Plan of Treatment Upcoming Encounters Date Type Department Care Team (Late st Contact Info) Description 04/14/2025 3:30 PM CDT Office Visit [facility] Internal Medicine - [place] [address] [place] [place] [phone] Kee Henao MD [address] [place] [address] documented as of this encounter Visit Diagnoses Not on filedocumented in this encounter Additional Health Concerns Infection Onset Date Last Indicated Resolved Time COVID - 19 09/08/2021 09/09/2021 09/29/2021 12:1 6 AM CLINICAL DIETITIAN Assessment Noted Time PHQ-9 Depression Total Score: 0 06/29/20 17 4:00 PM CLINICAL DIETITIAN documented as of this encounter Care Teams Geophysics Scientist Relationship Specialty Start Date End Date Yordan Feliz MD [address] [place] [address] PCP - General Internal Medicine 09/08/17 11/30/21 Kee Henao MD [address] [place] [address] PCP - General Internal Medicine 12/01/21 Ronit Rockwell MD [address] [place] [address] Consulting Physician Psychiatry 09/08/17 Randy Cruz MD [address] [place] [address] Consulting Physician Hematology 03/21/18 Jimena Davis MD [address] [place] [address] Consulting Physician Urology 03/25/19 Liborio Downs MD [address] [place] [address] Consulting Physician Pulmonary Disease 03/25/19 Carlie Ge, [place] Agronomy Specialist 03/12/21 04/13/21 Manav Donohue MD [address] [place] [address] Consulting Physician Neurology 07/14/21 Delvis Campos MD [address] [place] [address] Mission Analyst Cardiovascular Disease - Cardiology 01/07/22 07/24/24 Leann Brennan, [place] Registered Nurse Cardiology 06/06/22 07/24/24 Heladio Blanco, DPM Podiatry 11/24/21 Richard Whiting MD [address]2 [facility] [address] [place] [address] Consulting Physician Colon and Rectal Surgery 02/03/23 Mary Ann Figueredo APRN, ORIENTAL RUG STRETCHER [address]2 [facility] [address] [place] [address] Nurse Practitioner Cardiology 09/04/23 Jami Zimmer APRN, ORIENTAL RUG STRETCHER [address]2 [facility] [address] [place] [address] Nurse Practitioner Advanced Practice Nurse 03/14/22 Carol Kyle APRN, BACK FACER [address] [place] [address] Nurse Practitioner Advanced Practice Nurse 06/01/22 Aundrea Marvin APRN, ORIENTAL RUG STRETCHER [address] [place] [address] Nurse Practitioner Advanced Practice Nurse 09/16/24 documented as of this encounter
--- OUTSIDE RECORDS SUMMARY | 2025-01-31 14:58 | XMS_ITS | Encounter Summary ---
Author Organization [facility] Address [address] [place] [address] Phone Care Team Providers Care Labor Relations Or Personnel Negotiator Name Role Phone Yordan Feliz MD Primary Care Provider [phone] Ronit Rockwell MD Unavailable [phone] Randy Cruz MD Unavailable [phone] Jimena Davis MD Unavailable Liborio Downs MD Unavailable Carlie Ge Unavailable Unavailab Manav Alicia MD Unavailable [phone] Kee Henao MD Primary Care Provider [phone] Delvis Campos MD Unavailable Leann Heath RN Unavailable Unavaila Heladio Velázquez DPM Unavailable Unavailable Richard Whiting MD Unavailable Mary Ann Figueredo GUEST SERVICE REPRESENTATIVE, MAINFRAME ANALYST Unavailable + [phone] Jami Zimmer GUEST SERVICE REPRESENTATIVE, MAINFRAME ANALYST Unavailable +- [phone] Carol Kyle GUEST SERVICE REPRESENTATIVE, HEALTHCARE ADMINISTRATION INTERN Unavailable + [phone] Aundrea Marvin GUEST SERVICE REPRESENTATIVE, MAINFRAME ANALYST Unavailable Reason for Visit * Reason Comments Medication Refill Encounter Details Date Type Department Care Team ([facility] Contact Info) Description 01/14[facility]2021 [facility] - Pulmonology & Sleep Medicine [facility] [address] [place] [address] Liborio Downs MD [address] [place] [address] Medication Refill Social History Tobacco Use Types [...] Upcoming Encounters Date Type Department Care Team ([facility] Contact Info) Description 04/14/2025 3:30 PM CDT Office Visit [facility] - Internal Medicine - [place] [address] [place] [address] Kee Henao MD [address] [place] [address] documented as of this encounter Visit Diagnoses Not on filedocumented in this encounter Additional Health Concerns Infection Onset Date Last Indicated Resolved Time COVID - 19 09/08/2021 09/09/2021 09/29/2021 12:1 6 AM BLANCHING MACHINE OPERATOR Assessment Noted Time PHQ-9 Depression Total Score: 0 06/29/20 17 4:00 PM BLANCHING MACHINE OPERATOR documented as of this encounter Care Teams Labor Relations Or Personnel Negotiator Relationship Specialty Start Date End Date Yordan Feliz MD [address] [facility] [place] [address] PCP - General Internal Medicine 09/08/17 11/30/21 Kee Henao MD [address] [place] [address] PCP - General Internal Medicine 12/01/21 Ronit Rockwell MD [address] [place] [address] Consulting Physician Psychiatry 09/08/17 Randy Cruz MD [address] [place] [address] Consulting Physician Hematology 03/21/18 Jimena Davis MD [address] [place] [address] Consulting Physician Urology 03/25/19 Liborio Downs MD [address] [place] [address] Consulting Physician Pulmonary Disease 03/25/19 Carlie Ge, [place] Towel Folder 03/12/21 04/13/21 Manav Donohue MD [address] [place] [address] Consulting Physician Neurology 07/14/21 Delvis Campos MD [address] [place] [address] Auger Machine Offbearer Cardiovascular Disease - Cardiology 01/07/22 07/24/24 Leann Brennan RN [place] Registered Nurse Cardiology 06/06/22 07/24/24 Heladio Blanco DPM Podiatry 11/24/21 Richard Whiting MD #2 [facility] [address] [place] [address] Consulting Physician Colon and Rectal Surgery 02/03/23 Mary Ann Figueredo APRN, MAINFRAME ANALYST #2 [facility] [address] [place] [address] Nurse Practitioner Cardiology 09/04/23 Jami Zimmer APRN, MAINFRAME ANALYST #2 [facility] [address] [place] [address] Nurse Practitioner Advanced Practice Nurse 03/14/22 Carol Kyle APRN, HEALTHCARE ADMINISTRATION INTERN [address] [place] [address] Nurse Practitioner Advanced Practice Nurse 06/01/22 Aundrea Marvin APRN, MAINFRAME ANALYST [address] [place] [address] Nurse Practitioner Advanced Practice Nurse 09/16/24 documented as of this encounter
[2025-01-31 15:07] VITALS: BP 136/94; PULSE 86; RESP 28; TEMP 34.4; O2SAT 100
--- NOTE | 2025-01-31 15:21 | PC.NURSE ---
Temp 97.8 axillary
--- NOTE | 2025-01-31 15:29 | ED_ITS ---
HPI - General Adult General Chief complaint: Unspecified Stated complaint: Confusion/Abdominal Pain Time Seen by Provider: 01/31/25 15:13 Source: patient and RN notes reviewed Mode of arrival: ambulatory Limitations: no limitations History of Present Illness HPI narrative: Patient presents today complaining of a 10 day history of right-sided abdominal and flank pain, sweats, fatigue, dysuria. He was seen in the ER at [facility], diagnosed with a UTI and discharged home with Keflex and Flomax. States symptoms have worsened significantly and currently rates pain 10/10. He was only able to take the Keflex for 5 days instead of 7 as he states it made his abdominal pain worse. Denies fever. He has been able to drink some water. History of AFib, COPD Related Data Home Medications ?Medication ?Instructions ?Recorded ?Confirmed ?Last Taken ?Type Seroquel 01/31/25 Unknown History Suboxone 01/31/25 Unknown History clonazepam 0.5 mg tablet mg 01/31/25 Unknown History clonidine HCl 0.1 mg tablet mg 01/31/25 Unknown History diltiazem HCl 240 mg mg PO 01/31/25 Unknown History capsule,extended release 24 hr gabapentin 600 mg tablet mg 01/31/25 Unknown History metoprolol succinate 50 mg mg PO 01/31/25 Unknown History tablet,extended release 24 hr ondansetron HCl 8 mg tablet mg 01/31/25 Unknown History pantoprazole 20 mg tablet,delayed mg PO 01/31/25 Unknown History release rivaroxaban 20 mg tablet (Xarelto) mg 01/31/25 Unknown History tamsulosin 0.4 mg capsule mg PO 01/31/25 Unknown History vilazodone 10 mg tablet mg 01/31/25 Unknown History Allergies Allergy/AdvReac Type Severity Reaction Status Date / Time codeine Allergy Unknown Unknown Verified 01/31/25 15:09 Review of Systems Review of Systems: CONSTITUTIONAL: + fatigue, sweats EYES: Denies visual changes, redness, or discharge. ENT: Denies rhinorrhea, congestion, sore throat, or otalgia. CARDIOVASCULAR: Denies chest pain, palpitations, or edema. RESPIRATORY: Denies cough or dyspnea. GASTROINTESTINAL: Denies vomiting, or diarrhea.+ right-sided abdominal pain, right flank pain, nausea GENITOURINARY: Denies hematuria.+ dysuria SKIN: Denies rash, itching, or wounds. MUSCULOSKELETAL: Denies back pain, joint pain, or myalgia. NEUROLOGIC: Denies headache, numbness, tingling, or weakness. PSYCH: Denies depression or anxiety. [facility] Past Medical History Medical History (Updated 01/31/25 @ 15:43 by Clare Barnes, PSYCHOLOGIST EDUCATIONAL, ) COPD (chronic obstructive pulmonary disease) Afib Comments At time of signature, I have reviewed and agree with nursing past medical, surgical, social and family history unless otherwise noted. Please see nursing chart for further information. There is no relevant family history pertinent to the presenting complaint Exam Narrative: GENERAL: Acute on chronically ill-appearing, and in no acute distress. Diaphoretic, generalized skin pallor HEAD: Normocephalic, atraumatic. EYES: EOMI. No redness or drainage. Conjunctivae normal. ENT: Mucous membranes pink and moist. NECK: Normal AROM. Supple. No lymphadenopathy. CHEST: Clear to auscultation.+ tachypneic HEART: Irregularly irregular. No murmur appreciated. Normal peripheral pulses. ABDOMEN: Soft, nondistended, normal active bowel sounds.+ right upper abdomen tender to palpation. EXTREMITIES: Normal range of motion. No edema. SKIN: Warm, dry, no rash. Capillary refill normal. Normal skin turgor. NEURO: No focal deficits. Alert and oriented x3. Gait steady. PSYCH: Anxious Course Course Level of Care: Express Care Visit Vital Signs Vital signs: Vital Signs Temperature 94 F L 01/31/25 15:07 Pulse Rate 86 01/31/25 15:07 Respiratory Rate 28 H 01/31/25 15:07 Blood Pressure 136/94 H 01/31/25 15:07 Pulse Oximetry 100 01/31/25 15:07 Oxygen Delivery Room Air 01/31/25 15:07 Temperature 94 F L 01/31/25 15:07 Pulse Rate 86 01/31/25 15:07 Respiratory Rate 28 H 01/31/25 15:07 Blood Pressure 136/94 H 01/31/25 15:07 Pulse Oximetry 100 01/31/25 15:07 Oxygen Delivery Room Air 01/31/25 15:07 Reviewed. Follow-up temperature 97.8? axillary Transfer Transfered to: [facility]) Transportation: ALS Transfer rationale: Abdominal pain, flank pain, dysuria, failure of outpatient antibiotics for UTI Accepting physician: Malick Medical Decision Making MDM Narrative Medical decision making narrative: Patient will be transferred to the ER for further evaluation via EMS. Urinalysis not completed here in urgent care as this would delay transfer for further care. Differential Diagnosis Differential Diagnosis: Sepsis, pyelonephritis, UTI Vital Signs Vital Signs: Vital Signs Temperature 94 F L 01/31/25 15:07 Pulse Rate 86 01/31/25 15:07 Respiratory Rate 28 H 01/31/25 15:07 Blood Pressure 136/94 H 01/31/25 15:07 Pulse Oximetry 100 01/31/25 15:07 Oxygen Delivery Room Air 01/31/25 15:07 Temperature 94 F L 01/31/25 15:07 Pulse Rate 86 01/31/25 15:07 Respiratory Rate 28 H 01/31/25 15:07 Blood Pressure 136/94 H 01/31/25 15:07 Pulse Oximetry 100 01/31/25 15:07 Oxygen Delivery Room Air 01/31/25 15:07 Critical Care Time Critical Care Time Critical Care Time: No Discharge Plan Discharge Clinical Impression: Acute pyelonephritis Patient Disposition: Acute Care Hospital Condition: Serious Patient Language: Italian Prescriptions: No Action clonidine HCl 0.1 mg tablet gabapentin 600 mg tablet metoprolol succinate 50 mg tablet extended release 24 hr PO ondansetron HCl 8 mg tablet diltiazem HCl 240 mg capsule,extended release 24hr PO clonazepam 0.5 mg tablet pantoprazole 20 mg tablet,delayed release (DR/EC) PO tamsulosin 0.4 mg capsule PO vilazodone 10 mg tablet Xarelto 20 mg tablet Seroquel Suboxone Follow-up/Referrals: Juliano,Kee Blanco MD [Primary Care Provider] - Time of Disposition: 15:30
== END 2025-01-31 15:48 | disposition short-term general hospital (02) ==
PROVIDERS: Emergency Provider Nurse Practitioner; PCP Internal Medicine
DX: N10 Acute pyelonephritis (principal); J44.9 Chronic obstructive pulmonary disease, unspecified; I48.91 Unspecified atrial fibrillation
CPT/HCPCS: 99205; G0463